=== PATIENT | female | born 1945 | race Caucasian/White ===

== ENCOUNTER 2021-09-16 14:46 | Emergency (ER) | payer OTHER, SELFPAY ==
[2021-09-16 14:55] VITALS: BP 144/81; O2SAT 97
[2021-09-16 15:02] VITALS: BP 144/81; PULSE 55; RESP 18; TEMP 36.5; O2SAT 96; BMI 19.5
--- NOTE | 2021-09-16 15:07 | ED.ABDPAIN ---
HPI - Abdominal Pain General Time Seen by Provider: 15:07 Date Seen: 09/16/21 Chief Complaint: Abdominal Pain Stated Complaint: Abdominal pain Time Seen by Provider: 09/16/21 15:01 Source: patient, EMS, RN notes reviewed and old records reviewed Mode of arrival: EMS ([facility] service) History of Present Illness HPI narrative: Juanpablo is a very pleasant 75-year-old female coming in with complaint of abdominal pain. This started around 2-3 a.m. yesterday morning. It awoke her from sleep. She has not had any emesis but has not taken much in at all. She has a history of gastroparesis, does not remember exactly when it was diagnosed but probably several years ago. She will have intermittent symptoms and sometimes will be completely normal. With her gastroparesis she has stool incontinence and is experiencing that as well now. Denies any diarrhea technically. No urinary symptoms, no fevers. She historically has not tolerated IV Reglan. She does think she could use some fluids and IV Zofran. She did get brought in by [facility], they did establish an IV and have given her 100 mcg fentanyl. She is on clopidogrel for heart attack in February of 2021 for which she went to [facility]. She was actually in the ER being checked up for a sinusitis when she developed chest pain and was found to be having a heart attack. She denies any chest symptomatology at this time. She has had a prior appendectomy, cholecystectomy and hysterectomy but otherwise denies any other abdominal surgeries. MD elicited complaint: abdominal pain Pertinent past history: other (Gastroparesis) Onset (ago): day(s) (Started yesterday morning) Pain Consistency: constant Location: diffuse Severity: moderate Exacerbating factors: nothing Relieving factors: medication (Fentanyl did help) Related Data Home Medications Medication Instructions Recorded Confirmed clopidogrel 75 mg tablet mg 09/16/21 folic acid 1 mg tablet 09/16/21 isosorbide mononitrate 30 mg mg PO 09/16/21 tablet,extended release 24 hr lisinopril 10 mg tablet mg 09/16/21 lisinopril 2.5 mg tablet mg 09/16/21 metoprolol tartrate 100 mg tablet mg 09/16/21 omeprazole 20 mg capsule,delayed mg 09/16/21 release rosuvastatin 20 mg tablet mg 09/16/21 trazodone 150 mg tablet mg 09/16/21 Allergies Allergy/AdvReac Type Severity Reaction Status Date / Time codeine Allergy Verified 09/16/21 15:01 pentazocine [From Talwin] Allergy Verified 09/16/21 15:01 Sulfa (Sulfonamide Allergy Verified 09/16/21 15:01 Antibiotics) Review of Systems Status of ROS Reports: 10 or more systems reviewed and unremarkable except as noted in History and below PFS PFS Medical History (Updated 09/16/21 @ 17:30 by Rachelle Nguyễn MD) Gastroparesis GERD (gastroesophageal reflux disease) Surgical History (Updated 09/16/21 @ 17:30 by Rachelle Nguyễn MD) Status post appendectomy Status post cholecystectomy Status post hysterectomy Social History Smoking Status: Current every day smoker Do you use any of these nicotine containing products: E-Cigarettes Second hand tobacco smoke exposure: No How often do you have a drink containing alcohol: monthly or less How often do you have six or more drinks on one occasion: Never AUDIT-C Alcohol total score: 1 Non-prescribed substance use: denies use Exam Const: Vital Signs, click to edit/add: Vital Signs - 24 hr 09/16/21 14:55 09/16/21 15:02 09/16/21 16:15 Temperature 97.7 F Pulse Rate [Right Pulse Oximeter] 55 L Respiratory Rate 18 Blood Pressure [Ri ght Upper Arm] 144/81 H 144/81 H 169/85 H Pulse Oximetry 97 96 97 09/16/21 16:20 09/16/21 16:30 09/16/21 17:00 Temperature Pulse Rate [Right Pulse Oximeter] 53 L 53 L 55 L Respiratory Rate Blood Pressure [Ri ght Upper Arm] 187/80 H 184/88 H 155/98 H Pulse Oximetry 96 96 96 Documenting provider has reviewed patient's vital signs: yes Common normals: no apparent distress, average body habitus, oriented x3, no limitations, healthy appearing, alert and well nourished HENMT: Common normals: normocephalic, head/scalp atraumatic, hearing grossly normal bilaterally, external ears normal, external nose normal, moist oral mucous membranes, oropharynx normal and dentition normal Head and scalp: normocephalic and atraumatic Nose: external nose normal External ear: external ears normal Eye: Common normals: PERRL, EOMs intact bilaterally, conjunctivae normal and no scleral icterus Conjunctiva: conjunctiva(e) normal Pupil: PERRL Neck & C-Spine: Common normals: full ROM, no lymphadenopathy, supple, no meningeal signs, no JVD and thyroid normal Thyroid: thyroid normal Resp: Common normals: normal respiratory effort, no retractions, no use of accessory muscles and clear to auscultation bilaterally Auscultation: clear to auscultation bilaterally Cardio: Common normals: no JVD, regular rate, regular rhythm, S1 normal heart sound, S2 normal heart sound, no gallops, no clicks and no murmurs Rate: regular rate Rhythm: regular rhythm Heart sounds: S1 normal and S2 normal GI: Common normals: Normal to inspection, nondistended, normoactive bowel sounds present, soft to palpation, no hepatosplenomegaly and no masses Palpation: soft, tender (Mildly diffuse without rebound or guarding) and no hepatosplenomegaly Extremity: Common normals: normal to inspection, full ROM and no pedal edema Neuro: Common normals: oriented x3 Sensorium/orientation: alert Meningeal signs: no meningeal signs Skin: Common normals: no rashes or lesions noted (Skin is truong) General skin exam: no rashes or lesions noted (Skin is truong) Course Course Hospital Course: Reviewed with Adela that we will initiate normal saline 500 mL, give her 4 mg IV Zofran. We will initiate imaging with a flat and upright, consider CT abdomen pelvis if needed. Will be getting CBC, comprehensive metabolic panel, lipase as well as a lactate. Her gastroparesis is definitely in the differential, vascular etiologies certainly could be possible including but not limited to aneurysms, ischemic bowel. She has had prior abdominal surgeries and obstructive pathology is in the consideration. We will await labs and imaging to help us decide on further management. We will also consider atypical presentation of cardiac disease. Reevaluation(s) Reevaluation #1: Patient did get 1 further subsequent dose of fentanyl 50 mcg IV at 4:15 p.m.. After that she really felt quite well. Her flat and upright were not showing any obstructive pathology and her labs including troponin were showing no evidence of any abnormality. She then did give her trial of clear liquids and tolerated it with no return of any abdominal pain or symptoms of nausea vomiting. She is requesting to go home stating that she knows there is not much that we can do for her in this situation. At this time her symptoms have seemingly resolved and I do think it is reasonable for her to discharge to home. I have asked her to stay on a clear liquid diet overnight and slowly advance diet if tolerating clears. Time: 17:24 Vital Signs Vital signs: Initial Vital Signs Blood Pressure 144/81 H 09/16/21 14:55 Blood Pressure Mean 102 09/16/21 14:55 Blood Pressure Position Supine 09/16/21 14:55 Pulse Oximetry 97 09/16/21 14:55 Vital Signs Blood Pressure 144/81 H 09/16/21 14:55 Pulse Oximetry 97 09/16/21 14:55 Temperature 97.7 F 09/16/21 15:02 Pulse Rate 55 L 09/16/21 17:00 Respiratory Rate 18 09/16/21 15:02 Blood Pressure 155/98 H 09/16/21 17:00 Pulse Oximetry 96 09/16/21 17:00 MDM - Abdominal Pain MDM Narrative Medical decision making narrative: See hospital course Lab Data Attestation: I reviewed the patient's lab results. Labs: Lab Results 09/16/21 09/16/21 09/16/21 Range/Units 15:29 15:29 15:29 WBC 10.94 (4.50-11.00) K/uL RBC 4.48 (4.00-5.20) m/uL Hgb 13.2 (12.0-16.0) gm/dL Hct 40.0 (33.0-51.0) % MCV 89 (80-100) fL MCH 30 (26-34) pg MCHC 33 (32-36) gm/dL RDW Coeff of Kenny 13.7 (11.5-15.5) % Plt Count 265 (140-440) K/uL Neut % (Auto) 70.1 (42.0-72.0) % Lymph % (Auto) 17.8 L (20-44) % Tarrant % (Auto) 9.8 (0.0-11.0) % Eos % (Auto) 1.2 (0.0-7.0) % Baso % (Auto) 0.6 (0.0-3.0) % Neut # (Auto) 7.66 H (1.7-7.0) K/uL Lymph # (Auto) 1.90 (0.90-2.90) K/uL Tarrant # (Auto) 1.10 H (0.00-0.90) K/UL Eos # (Auto) 0.13 (0.00-0.50) K/uL Baso # (Auto) 0.07 (0.00-0.30) K/uL Abs Immat Gran (auto) 0.06 (0.00-0.30) K/uL Sodium 140 (135-149) mmol/L Potassium 3.4 L (3.6-5.1) mmol/L Chloride 106 (96-114) mmol/L Carbon Dioxide 25 (20-32) mmol/L BUN 8 (7-30) mg/dL Creatinine 0.8 (0.5-1.5) mg/dL Estimated Creat Clear 34.81 Glucose 90 (60-115) mg/dL Lactate 1.5 (0.5-1.9) mmol/L Calcium 9.6 (8.4-10.6) mg/dL Total Bilirubin 0.5 (0.1-1.5) mg/dL AST 25 (12-35) U/L ALT 17 (4-35) U/L Alkaline Phosphatase 72 (40-150) U/L Troponin I < 0.01 L (0.01-0.04) ng/mL Total Protein 6.9 (6.0-8.3) g/dL Albumin 4.4 (3.3-5.0) g/dL Lipase 51 (23-300) U/L 09/16/21 09/16/21 Range/Units 15:29 15:29 WBC (4.50-11.00) K/uL RBC (4.00-5.20) m/uL Hgb (12.0-16.0) gm/dL Hct (33.0-51.0) % MCV (80-100) fL MCH (26-34) pg MCHC (32-36) gm/dL RDW Coeff of Kenny (11.5-15.5) % Plt Count (140-440) K/uL Neut % (Auto) (42.0-72.0) % Lymph % (Auto) (20-44) % Tarrant % (Auto) (0.0-11.0) % Eos % (Auto) (0.0-7.0) % Baso % (Auto) (0.0-3.0) % Neut # (Auto) (1.7-7.0) K/uL Lymph # (Auto) (0.90-2.90) K/uL Tarrant # (Auto) (0.00-0.90) K/UL Eos # (Auto) (0.00-0.50) K/uL Baso # (Auto) (0.00-0.30) K/uL Abs Immat Gran (auto) (0.00-0.30) K/uL Sodium (135-149) mmol/L Potassium (3.6-5.1) mmol/L Chloride (96-114) mmol/L Carbon Dioxide (20-32) mmol/L BUN (7-30) mg/dL Creatinine (0.5-1.5) mg/dL Estimated Creat Clear Glucose (60-115) mg/dL Lactate (0.5-1.9) mmol/L Calcium (8.4-10.6) mg/dL Total Bilirubin (0.1-1.5) mg/dL AST (12-35) U/L ALT (4-35) U/L Alkaline Phosphatase (40-150) U/L Troponin I Cancelled (0.01-0.04) ng/mL Total Protein (6.0-8.3) g/dL Albumin (3.3-5.0) g/dL Lipase Cancelled (23-300) U/L Imaging Data Abdominal x-ray: Attestation: I have reviewed the pertinent imaging results. Radiologist's impression: Patient: ADELA BOYD Facility:?[facility] Patient ID:?[id number] Site Patient ID:?[id number]. Site :?[id number] Study:?XRay Abdomen 2 VIEW-09/16/2021 3:39:50 PM Ordering Physician:Kyle Bush Final Report: Indication: Abdominal pain. History of gastroparesis. Technique: Upright and supine views the abdomen were acquired Comparison: None Findings: Degenerative changes of the spine. Calcifications are probably partially vascular and probably due to fat necrosis in the buttocks. Postoperative change in the right upper quadrant. Nonobstructive bowel gas pattern without evidence of ileus, obstruction or perforation. No undue dilation of the stomach Impression: No evidence of ileus, obstruction or perforation. No undue dilation of the stomach. Dictated by Ck Stinson MD @ 09/16/2021 4:33:43 PM (Electronic Signature) ECG Data Attestation: I personally reviewed and interpreted this ECG as follows: (Sinus bradycardia, 53 beats per minute, no acute abnormality noted.) ECG interpretation date: 09/16/21 ECG interpretation time: 16:11 Critical Care Time Critical Care Time Critical Care Time: No Discharge Plan Discharge Clinical Impression: Abdominal pain Patient Disposition: Home, Self-Care Condition: Improved Instructions: Abdominal Pain (ED) Additional Instructions: Stick with sips of clear liquids overnight. If you are tolerating this and have no abdominal pain or nausea, I can try to slowly advance her diet as tolerated back to regular. Seek re-evaluation with severe abdominal pain, associated fever or vomiting. She do have further concerns or other issues that are concerning you related to these issues, also recommend re-evaluation. Activity Level: No Restrictions Discharge Diet: Clear Liquid Diet Detail: See above Prescriptions: No Action metoprolol tartrate 100 mg tablet 0RF isosorbide mononitrate 30 mg tablet extended release 24 hr PO 0RF clopidogrel 75 mg tablet 0RF trazodone 150 mg tablet 0RF lisinopril 10 mg tablet 0RF omeprazole 20 mg capsule,delayed release(DR/EC) 0RF folic acid 1 mg tablet 0RF lisinopril 2.5 mg tablet 0RF rosuvastatin 20 mg tablet 0RF Follow Up/Referrals: Tong Truong MD [Primary Care Provider] - Stand Alone Forms: [employer] Info Instructions
--- NOTE | 2021-09-16 15:17 | CRLHL7_ITS ---
For Patients: As a result of the Century Cures Act, medical imaging exams and procedure reports are released immediately into your electronic medical record. You may view this report before your referring provider. If you have questions, please contact your health care provider. Indication: Abdominal pain. History of gastroparesis. Technique: Upright and supine views the abdomen were acquired Comparison: None Findings: Degenerative changes of the spine. Calcifications are probably partially vascular and probably due to fat necrosis in the buttocks. Postoperative change in the right upper quadrant. Nonobstructive bowel gas pattern without evidence of ileus, obstruction or perforation. No undue dilation of the stomach Impression: No evidence of ileus, obstruction or perforation. No undue dilation of the stomach. Dictated by Ck Stinson MD @ 09/16/2021 4:33:43 PM (Electronically Signed)
[2021-09-16 15:35] LABS: Basophils Absolute Auto 0.07 K/uL (0.00-0.30); Basophils Percent Auto 0.6 % (0.0-3.0); Eosinophils Absolute Auto 0.13 K/uL (0.00-0.50); Eosinophils Percent Auto 1.2 % (0.0-7.0); Hemoglobin* 13.2 gm/dL (12.0-16.0); Immature Granulocytes Abs Auto 0.06 K/uL (0.00-0.30); Lymphocytes Percent Auto 17.8 % (20-44); Mean Corpuscular HGB Conc 33 gm/dL (32-36); Mean Corpuscular Hemoglobin 30 pg (26-34); Mean Corpuscular Volume 89 fL (80-100); Monocytes Percent Auto 9.8 % (0.0-11.0); Neutrophils Absolute Auto 7.66 K/uL (1.7-7.0); Neutrophils Percent Auto 70.1 % (42.0-72.0); Platelet Count* 265 K/uL (140-440); RDW Coefficient of Variation % 13.7 % (11.5-15.5); Red Blood Count 4.48 m/uL (4.00-5.20); White Blood Count* 10.94 K/uL (4.50-11.00)
[2021-09-16 15:41] LABS: Lactate* 1.5 mmol/L (0.5-1.9)
[2021-09-16 15:46] LABS: Slide Review Reflex No
[2021-09-16] MEDS: ONDANSETRON 2 MG/ML inj 4 MG IVP (15:49)
[2021-09-16] MEDS: 0.9 % SODIUM CHLORIDE 500 ML 500 ML IV (15:49)
[2021-09-16 16:01] LABS: Albumin* 4.4 g/dL (3.3-5.0)
[2021-09-16 16:02] LABS: Chloride* 106 mmol/L (96-114); Potassium* 3.4 mmol/L (3.6-5.1); Sodium* 140 mmol/L (135-149)
[2021-09-16 16:04] LABS: Aspartate Amino Transferase* 25 U/L (12-35); Bilirubin Total* 0.5 mg/dL (0.1-1.5); Carbon Dioxide* 25 mmol/L (20-32); Creatinine* 0.8 mg/dL (0.5-1.5); Est. Creatinine Clearance* 34.81; Estimated Glomerular Filt Rate 76.79; Total Protein* 6.9 g/dL (6.0-8.3)
[2021-09-16 16:05] LABS: Alanine Aminotransferase* 17 U/L (4-35); Alkaline Phosphatase* 72 U/L (40-150); Blood Urea Nitrogen* 8 mg/dL (7-30); Calcium* 9.6 mg/dL (8.4-10.6); Glucose* 90 mg/dL (60-115); Lipase* 51 U/L (23-300)
[2021-09-16 16:15] VITALS: BP 169/85; O2SAT 97
[2021-09-16 16:20] VITALS: BP 187/80; PULSE 53; O2SAT 96
[2021-09-16 16:20] LABS: Troponin I* < 0.01 ng/mL (0.01-0.04)
[2021-09-16] MEDS: fentaNYL 100 MCG/2 ML inj 50 MCG IVP (16:23)
[2021-09-16 16:30] VITALS: BP 184/88; PULSE 53; O2SAT 96
[2021-09-16 17:00] VITALS: BP 155/98; PULSE 55; O2SAT 96
== END 2021-09-16 17:36 | disposition home or self-care (01) ==
PROVIDERS: Emergency Provider Family Medicine; PCP Family Medicine
DX: R10.9 Unspecified abdominal pain (principal)
CPT/HCPCS: 36415; 74019; 80053; 83605; 83690; 84484; 85025; 93005; 96374; 96375; 99284; 99285; J2405; J3010; J7120

== ENCOUNTER 2022-07-06 10:50 | Outpatient (CLI) | payer MEDICARE, SELFPAY | END 2022-07-06 10:51 | disposition home or self-care (01) | LOC: NFLDREF 07-07 11:09 | PROVIDERS: PCP Family Medicine; Referring Provider Family Medicine; Visit Provider Family Medicine | DX: E78.5 Hyperlipidemia, unspecified (principal); I25.10 Atherosclerotic heart disease of native coronary artery without angina pectoris; I10 Essential (primary) hypertension; K52.9 Noninfective gastroenteritis and colitis, unspecified; Z95.5 Presence of coronary angioplasty implant and graft; E87.6 Hypokalemia | CPT/HCPCS: 80048; 80061 ==

== ENCOUNTER 2023-11-12 13:15 | Emergency (ER) | payer MEDICARE, MEDICAID, SELFPAY ==
[2023-11-12] VITALS (12 sets, daily range): BP systolic 110–140; BP diastolic 66–86; PULSE 61–68; RESP 18; TEMP 37.1; O2SAT 96–98; BMI 18.7
--- NOTE | 2023-11-12 13:32 | CRLHL7_ITS ---
For Patients: As a result of the Century Cures Act, medical imaging exams and procedure reports are released immediately into your electronic medical record. You may view this report before your referring provider. If you have questions, please contact your health care provider. INDICATION: Fall, vertigo TECHNIQUE: CT head without contrast. COMPARISON: Head CT 12/16/2019 FINDINGS: CSF spaces: Within normal limits for age. Brain parenchyma: The gaytan-white differentiation is normal. No sign of mass, hemorrhage, or midline shift. Skull base and calvarium: The visualized paranasal sinuses and mastoid air cells demonstrate no acute or significant findings. The visualized orbits are grossly unremarkable. No skull fractures. Atherosclerosis. IMPRESSION: Unremarkable noncontrast head CT. Please note that all CT scans at this facility use dose modulation, iterative reconstruction, and/or weight-based dosing when appropriate to reduce radiation dose to as low as reasonably achievable. Dictated by Beau Montoya MD @ 11/12/2023 2:30:04 PM (Electronically Signed)
--- NOTE | 2023-11-12 13:34 | CRLHL7_ITS ---
For Patients: As a result of the Century Cures Act, medical imaging exams and procedure reports are released immediately into your electronic medical record. You may view this report before your referring provider. If you have questions, please contact your health care provider. DATE: 11/12/2023 CLINICAL HISTORY: Patient with fall and vertigo. TECHNIQUE: Standard helical CT image acquisition of the neck up to the skull base after bolus intravenous contrast enhancement. 2D and 3D MIP images for post-processing were performed and interpreted on an independent workstation and 3D images were permanently archived. COMPARISON: CT same day. FINDINGS: The origins of the great vessels from the aortic arch are patent. The origin of the right vertebral artery demonstrates mild narrowing. The origin of the left vertebral artery demonstrates mild narrowing. The common carotid arteries are patent. There is no stenosis at the origin of the right internal carotid artery. There is no stenosis at the origin of the left internal carotid artery. The rest of the cervical segments of the internal carotid arteries are patent up to the skull base. The vertebral arteries are codominant. The cervical segments of the vertebral arteries are patent up to the skull base. The visualized lung apices are unremarkable. The thyroid gland is unremarkable. The soft tissues of the neck are unremarkable. There are degenerative changes in the cervical spine. IMPRESSION: Mild narrowing at the origins of the vertebral arteries bilaterally. Patent rest of the cervical vasculature. Please note that all CT scans at this facility use dose modulation, iterative reconstruction, and/or weight-based dosing when appropriate to reduce radiation dose to as low as reasonably achievable. Dictated by Shira Mojica MD @ 11/12/2023 3:00:38 PM (Electronically Signed)
--- NOTE | 2023-11-12 13:34 | CRLHL7_ITS ---
For Patients: As a result of the Century Cures Act, medical imaging exams and procedure reports are released immediately into your electronic medical record. You may view this report before your referring provider. If you have questions, please contact your health care provider. DATE: 11/12/2023 CLINICAL HISTORY: Patient with vertigo and falls. TECHNIQUE: Standard helical CT image acquisition through the intracranial circulation following intravenous administration of contrast material with bolus tracking. 2D and 3D MIP images for post-processing were performed and interpreted on an independent workstation and 3D images were permanently archived. COMPARISON: CT same day. FINDINGS: There is no cerebral aneurysm or large vessel occlusion. The right internal carotid artery is normal. The right middle cerebral artery and its branches are normal. The right anterior cerebral artery and its branches are normal. The left internal carotid artery is normal. The left middle cerebral artery and its branches are normal. The left anterior cerebral artery and its branches are normal. The anterior communicating artery is well visualized and appears normal. The right vertebral artery and PICA are normal. The left vertebral artery and PICA are normal. The vertebral arteries are codominant. The basilar artery is patent and appears normal. The right posterior cerebral artery is normal. The left posterior cerebral artery is normal. The visualized venous structures are patent. IMPRESSION: Patent proximal intracranial vasculature without intracranial aneurysms. Please note that all CT scans at this facility use dose modulation, iterative reconstruction, and/or weight-based dosing when appropriate to reduce radiation dose to as low as reasonably achievable. Dictated by Shira Mojica MD @ 11/12/2023 3:02:33 PM (Electronically Signed)
--- NOTE | 2023-11-12 13:36 | ED_ITS ---
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 She has no known history of stroke. Her primary care provider is Dr. Zabrina wilson here at the [facility]. Per records her most recent checkup was in May 2023. According to that record she did have an UT around [place], but unclear about who her elevator repairer helper was. She has a history of AFib but does not know for sure if she is on meds or not. She thinks she is on metoprolol and Eliquis. Patient reports that she has an apartment in [place]. She tends to sleep late so she got up late this morning and had not had breakfast for lunch she had. She was walking in her apartment today when she says she just abruptly got dizzy. She felt like things were moving around her or that her body was not in the right place. She fell down. She did not really injure herself when she fell. She says she did not hit her head. Around that same time she also developed a pressure-like substernal chest pain. This does not radiate up to her neck, through to her back, or down her arm. She is mildly nauseous. No trouble breathing. She does not feel any palpitations. No abdominal pain or back pain. Her vision has been normal. No double vision, blurry vision, or vision loss. No numbness or weakness in her arms or legs. The her son, Anjel, provides additional history by phone that she is a heavy drinker and if she is dizzy she may actually be intoxicated. Patient, when asked directly says that she ?split a bottle of wine with a friend? yesterday but denies any alcohol consumption today. Related Data Home Medications ?Medication ?Instructions ?Recorded ?Confirmed aspirin 81 mg tablet,delayed 81 mg PO DAILY 07/06/22 05/24/23 release calcium w/D PO BID 07/06/22 05/24/23 multivitamin 1 tab PO QDAY 07/06/22 05/24/23 omeprazole 20 mg capsule,delayed 20 mg PO QDAY PRN 05/24/23 05/24/23 release Previous Rx's ?Medication ?Instructions ?Recorded naratriptan 2.5 mg tablet 2.5 mg PO DAILY PRN migraine 02/05/23 headache #9 tabs apixaban 2.5 mg tablet (Eliquis) 2.5 mg PO BID #180 tabs 05/24/23 metoprolol tartrate 100 mg tablet 100 mg PO BID #180 tabs 09/15/23 isosorbide dinitrate 30 mg tablet 30 mg PO TID #270 tabs 09/17/23 lisinopril 2.5 mg tablet 2.5 mg PO QDAY #90 tabs 09/17/23 rosuvastatin 20 mg tablet 20 mg PO QDAY #90 tabs 09/17/23 trazodone 150 mg tablet 150 mg PO QHS #90 tabs 09/17/23 clopidogrel 75 mg tablet 75 mg PO QDAY #90 tabs 09/20/23 folic acid 1 mg tablet 1 mg PO QDAY #90 tabs 09/20/23 magnesium oxide 400 mg (241.3 mg 400 mg PO QDAY #90 tabs 09/20/23 magnesium) tablet nitroglycerin 0.4 mg sublingual 0.4 mg sublingual Q5M PRN chest 09/20/23 tablet pain #25 tabs Allergies Allergy/AdvReac Type Severity Reaction Status Date / Time aspirin Allergy Intermediate aggitation Verified 05/24/23 13:41 codeine Allergy Intermediate nausea and Verified 05/24/23 13:41 vomiting naloxone Allergy Intermediate aggitation Verified 05/24/23 13:41 pentazocine [From [place]win] Allergy Intermediate aggitation Verified 05/24/23 13:41 Sulfa (Sulfonamide Allergy Verified 05/24/23 13:41 Antibiotics) [facility] Medical History (Updated 11/12/23 @ 15:34 by Rod Foss MD) History of stroke ?Z86.73 - Personal history of transient ischemic attack (TIA), and cerebral infarction without residual deficits (ICD-10) Proctocolitis (06/2022) ?K52.9 - Noninfective gastroenteritis and colitis, unspecified (ICD-10) History of ganglion cyst ?Z87.39 - Personal history of other diseases of the musculoskeletal system and connective tissue (ICD-10) History of alcohol abuse ?F10.11 - Alcohol abuse, in remission (ICD-10) GERD (gastroesophageal reflux disease) ?K21.9 - Gastro-esophageal reflux disease without esophagitis (ICD-10) Gastroparesis ?K31.84 - Gastroparesis (ICD-10) Surgical History (Updated 12/28/22 @ 13:53 by Savanah Dias) Presence of stent in coronary artery ?Z95.5 - Presence of coronary angioplasty implant and graft (ICD-10) History of tonsillectomy ?Z90.89 - Acquired absence of other organs (ICD-10) History of breast biopsy ?Z98.890 - Other specified postprocedural states (ICD-10) Status post hysterectomy ?Z90.710 - Acquired absence of both cervix and uterus (ICD-10) Status post cholecystectomy ?Z90.49 - Acquired absence of other specified parts of digestive tract (ICD- 10) Status post appendectomy ?Z90.49 - Acquired absence of other specified parts of digestive tract (ICD- 10) Social History (Updated 05/24/23 @ 18:06 by Denisa Blanco~[facility], [facility]) Narrative: financial difficulty- ex misleading about debt What is your current living situation?: I presently have a place to live Problems where you live: pests, such as bugs, ants, or mice In the past 12 months, utilities in danger of being shut off: no In past 12 months, lack of transportation kept you from medical appts, meetings, work, or getting things needed for daily living: yes In the past 12 mos, have been you worried that your food would run out before you had money to buy more?: sometimes true In the past 12 mos, the food you bought just didn't last and you didn't have money to buy more?: never true Smoking Status: Former smoker Do you use any of these nicotine containing products: E-Cigarettes Second hand tobacco smoke exposure: No How often do you have a drink containing alcohol: monthly or less How often do you have six or more drinks on one occasion: Never AUDIT-C Alcohol total score: 1 Non-prescribed substance use: denies use How often does anyone, including family, friends and others, physically hurt you : never How often does anyone, including family, friends and others, insult or talk down to you: never How often does anyone, including family, friends and others, threaten you with harm: never How often does anyone, including family, friends and others, scream or curse at you: never Little interest or pleasure in doing things: not at all Feeling down, depressed, or hopeless: several days Exam Narrative: Exam Narrative: Constitutional: Appears well-developed and well-nourished. Alert. Conversant. Non toxic. HENT: Head: Atraumatic. No depressed skull fracture, Raccoon Eyes, Mchugh's sign, or hemotympanum. Face normal. TMs normal TMs normal Nose: Nose normal. Mouth/Throat: Oral mucosa is clear and moist. no trismus. Pharynx normal. Tonsils symmetric. No tonsillar enlargement, erythema, or exudate. Eyes: Conjunctivae normal. EOM normal. Pupils equal, round, and reactive to light. No scleral icterus. Neck: Normal range of motion. Neck supple. No tracheal deviation present. Cardiovascular: Normal rate, regular rhythm. No gallop. No friction rub. No murmur heard. Symmetric radial artery pulses Pulmonary/Chest: Effort normal. No stridor. No respiratory distress. No wheezes. No rales. No rhonchi . No tenderness. Abdominal: Soft. Bowel sounds normal. No distension. No mass. No tenderness. No rebound. No guarding. Musculoskeletal: RUE: Normal range of motion. No tenderness. No deformity LUE: Normal range of motion. No tenderness. No deformity RLE: Normal range of motion. No edema. No tenderness. No deformity LLE: Normal range of motion. No edema. No tenderness. No deformity Lymph: No cervical adenopathy. Neurological: Mental status normal. Attention normal. Alert and oriented x3. GCS 15. Memory normal. Speech fluent. Cognition normal. Cranial Nerves intact II-XII except I did not formally test gag or visual acuity. EOMI. Palate elevates symmetrically and tongue protrudes in the midline. Strength: 5/5 trapezius on the right and left 5/5 deltoid on the right and left 5/5 biceps on the right and left 5/5 triceps on the right and left 5/5 returns processor on the right and left 5/5 thumb opposition on the right and le ft 5/5 finger abduction on the right and le ft 5/5 hip flexors (L3) on the right and le ft 5/5 quadriceps (L4) on the right and lef t 5/5 tibialis anterior on the right and l eft 5/5 EHL (L5) on the right and left 5/5 gastrocnemius (S1) on the right and left 5/5 hamstring on the right and left Sensation intact to light touch in both upper extremities (C4-T1) Sensation intact to light touch in Both lower extremities (L4-S1). Finger to nose and coordination normal. Gait not assessed during initial evaluation with need to get her for CT Skin: Skin is warm and dry. No rash noted. No pallor. Normal capillary refill. Psychiatric: Normal mood. Normal affect. Very pleasant. Does endorse that she had a bottle wine yesterday that she split with a friend. She denies any alcohol to today. Her son Anjel reports to the nurses by phone that she is a ?heavy alcoholic. Const: Vital Signs, click to edit/add: Vital Signs - 24 hr 11/12/23 13:24 11/12/23 13:27 11/12/23 13:30 Temperature 98.7 F Pulse Rate 66 68 Pulse Rate [Pulse Oximeter] 66 Respiratory Rate 18 Blood Pressure Blood Pressure [Ri ght Upper Arm] 110/66 Pulse Oximetry 96 97 96 Oxygen Delivery Me thod Room Air 11/12/23 13:45 11/12/23 14:00 11/12/23 14:30 Temperature Pulse Rate 65 61 Pulse Rate [Pulse Oximeter] Respiratory Rate Blood Pressure 131/81 Blood Pressure [Ri ght Upper Arm] Pulse Oximetry 97 98 Oxygen Delivery Me thod 11/12/23 14:32 11/12/23 14:33 11/12/23 14:45 Temperature Pulse Rate 65 66 63 Pulse Rate [Pulse Oximeter] Respiratory Rate Blood Pressure 124/86 Blood Pressure [Ri ght Upper Arm] Pulse Oximetry 96 97 98 Oxygen Delivery Me thod 11/12/23 15:00 11/12/23 15:02 11/12/23 15:02 Temperature Pulse Rate 64 61 61 Pulse Rate [Pulse Oximeter] Respiratory Rate Blood Pressure 140/82 H 140/82 H Blood Pressure [Ri ght Upper Arm] Pulse Oximetry 98 98 98 Oxygen Delivery Me thod 11/12/23 15:15 Temperature Pulse Rate 61 Pulse Rate [Pulse Oximeter] Respiratory Rate Blood Pressure Blood Pressure [Ri ght Upper Arm] Pulse Oximetry 98 Oxygen Delivery Me thod Course Course ED Course: Recheck-back from CT. Still feeling a little bit nauseous. Mildly dizzy. Able to drink water. Additional Zofran ordered. Reevaluation(s) Reevaluation #1: Recheck-labs coming back. Initial troponin normal. Alcohol level is elevated at 0.11. I discussed this with the patient. We discussed that an alcohol level of 0.11 today this afternoon is not consistent with consuming half full bottle of wine yesterday. I asked her if there was more alcohol intake that she had initially been on comfortable confiding. She did change her story and said that she had a whole bottle of wine and her friend had a bottle of wine yesterday. She says otherwise she was not drinking overnight or this morning. She also says that she does not normally drink and she has not had any alcohol in 6 months. The only reason why she had 1 yesterday was because her friend was visiting. Ultimately, she denies any trouble with alcohol consumption. She is not interested in alcohol treatment. She is not displaying any signs of alcohol withdrawal. Vital Signs Vital signs: Initial Vital Signs Temperature 98.7 F 11/12/23 13:24 Temperature Source Temporal Artery Scan 11/12/23 13:24 Pulse Rate 66 11/12/23 13:24 Respiratory Rate 18 11/12/23 13:24 Blood Pressure 110/66 11/12/23 13:24 Blood Pressure Mean 80 11/12/23 13:24 Pulse Oximetry 96 11/12/23 13:24 Oxygen Delivery Method Room Air 11/12/23 13:24 Vital Signs Temperature 98.7 F 11/12/23 13:24 Pulse Rate 66 11/12/23 13:24 Respiratory Rate 18 11/12/23 13:24 Blood Pressure 110/66 11/12/23 13:24 Pulse Oximetry 96 11/12/23 13:24 Oxygen Delivery Method Room Air 11/12/23 13:24 Temperature 98.7 F 11/12/23 13:24 Pulse Rate 61 11/12/23 15:15 Respiratory Rate 18 11/12/23 13:24 Blood Pressure 140/82 H 11/12/23 15:02 Pulse Oximetry 98 11/12/23 15:15 Oxygen Delivery Method Room Air 11/12/23 13:24 Medications Administered Medications: Discontinued Medications Generic Name Dose Route Start Last Admin Trade Name Stefan PRN Reason Stop Dose Admin Sodium Chloride 1,000 mls @ 1,000 mls/hr 11/12/23 15:45 11/12/23 16:00 0.9 % Sodium Chloride 1000 Ml IV 11/12/23 16:44 Infused .Q1H SANIYA Infusion Meclizine HCl 25 mg 11/12/23 13:35 11/12/23 13:50 Meclizine Hcl 25 Mg Tablet PO 11/12/23 13:36 25 mg ONCE ONE Administration Ondansetron HCl 4 mg 11/12/23 13:35 11/12/23 13:45 Ondansetron 2 Mg/Ml Inj IVP 11/12/23 13:36 4 mg ONCE ONE Administration Ondansetron HCl 4 mg 11/12/23 14:35 11/12/23 14:40 Ondansetron 2 Mg/Ml Inj IVP 11/12/23 14:36 4 mg ONCE ONE Administration Medical Decision Making MDM Narrative Medical decision making narrative: 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 She is complaining of nauseous, mild dizziness and vertigo, also substernal chest discomfort. In terms of her dizziness and vertigo initially with presumed she probably fell as a result of vertigo. Initial concern was to determine whether not vertigo is peripheral or possibly central. Other than vertigo no other detectable ne urologic deficits. No diplopia, dysarthria, dysphagia, definite nystagmus. We did order neuro imaging with CT head CT and CTA - both normal. After the patient arrived, son provided additional history by phone that she is an alcoholic. This prompted a struck alcohol level and it is positive at 0.11. This likely explains her nausea and unsteadiness. Without any other focal neurologic deficits, and a it probable explanation for her dizziness would hold off on brain MRI for now. She is not a candidate for thrombolytic because she is also on Eliquis for stroke prophylaxis with AFib. EKG shows sinus rhythm today. No arrhythmia or atrial fibrillation. She is also complaining of some substernal chest discomfort which began around noon today, approximately. Aspirin contraindicated by Allergy. She is already anticoagulated on Eliquis. EKG shows no ischemia. Troponin upon arrival is negative. 2 hour delta troponin[] She is not having any pleuritic chest pain, shortness of breath, hypoxia, tachycardia. She has no signs or symptoms of DVT. Will hold off on PE workup for now given very low likelihood. The although she does have alcohol intoxication and likely a pattern of alcohol abuse, other labs are reassuring. Sodium and potassium normal. Anion gap normal. No evidence for AKA. Kidney function normal. Venous lactic normal. Liver function tests are normal. No abdominal pain Urinalysis is normal In terms of her alcohol consumption her story is changing here in the ER, initially half a bottle 1, next she reported a whole bottle of wine. She also says yesterday was the 1st day she consumed any alcohol in 6 months. Her son reported a different pattern of alcohol consumption. Ultimately she is polite and cooperative. No signs of alcohol withdrawal. She is refusing any offered treatment or referral for outpatient care. Disposition. After completing her chest pain rule out patient is adamantly requesting discharge. She does not have anyone from [place] to come get her and drive her home. [place] are not available to drive that far. We contacted her son, Anjel. I left a message with her son any call back and talk to nurses. He lives in [place] but can come get her, leaving home after 8:00 p.m. tonlaurie. Her son Juan Luis will not come get her today. Lab Data Labs: Lab Results 11/12/23 11/12/23 11/12/23 Range/Units 13:32 13:33 13:50 WBC 9.01 (4.50-11.00) K/uL RBC 4.60 (4.00-5.20) m/uL Hgb 14.3 (12.0-16.0) gm/dL Hct 43.6 (33.0-51.0) % MCV 95 (80-100) fL MCH 31 (26-34) pg MCHC 33 (32-36) gm/dL RDW Coeff of Kenny 13.1 (11.5-15.5) % Plt Count 269 (140-440) K/uL Neut % (Auto) 57.3 (42.0-72.0) % Lymph % (Auto) 28.9 (20-44) % [place] % (Auto) 10.8 (0.0-11.0) % Eos % (Auto) 2.0 (0.0-7.0) % Baso % (Auto) 0.7 (0.0-3.0) % Neut # (Auto) 5.17 (1.7-7.0) K/uL Lymph # (Auto) 2.60 (0.90-2.90) K/uL [place] # (Auto) 1.00 H (0.00-0.90) K/UL Eos # (Auto) 0.18 (0.00-0.50) K/uL Baso # (Auto) 0.06 (0.00-0.30) K/uL Abs Immat Gran (auto) 0.03 (0.00-0.30) K/uL Imm/Tot Granulo (auto) 0.3 % Sodium 142 (135-149) mmol/L Potassium 4.1 (3.6-5.1) mmol/L Chloride 109 (96-114) mmol/L Carbon Dioxide 25 (20-32) mmol/L Anion Gap 8 (7-15) mEq/L BUN 6 L (7-30) mg/dL Creatinine 0.7 (0.5-1.5) mg/dL Estimated Creat Clear 32.39 Estimated GFR 89 ml/min Glucose 101 (60-115) mg/dL Lactate 1.5 (0.5-1.9) mmol/L Calcium 9.3 (8.4-10.6) mg/dL Total Bilirubin 0.3 (0.1-1.5) mg/dL Direct Bilirubin 0.2 (0.0-0.5) mg/dL AST 30 (12-35) U/L ALT 23 (4-35) U/L Alkaline Phosphatase 63 (40-150) U/L Total Protein 6.9 (6.0-8.3) g/dL Albumin 4.6 (3.3-5.0) g/dL Urine Color (Yellow) Urine Appearance (Clear) Urine pH (5.0-8.5) Ur Specific [place] (1.000-1.030) Urine Protein (Negative) Urine Glucose (UA) (Negative) Urine Ketones (Negative) Urine Blood (Negative) Urine Nitrite (Negative) Urine Bilirubin (Negative) Urine Urobilinogen (0.2-1.0) Ur Leukocyte Esterase (Negative) Urine RBC (0-2) Urine WBC (0-5) Ur Squamous Epith Cells (None-Few) Urine Bacteria (None) Ethyl Alcohol 0.11 H (0.01-0.03) % POC Creatinine 0.9 (0.6-1.3) mg/dl POC Troponin I 0.01 (0.01-0.04) ng/ml 11/12/23 11/12/23 Range/Units 14:40 15:30 WBC (4.50-11.00) K/uL RBC (4.00-5.20) m/uL Hgb (12.0-16.0) gm/dL Hct (33.0-51.0) % MCV (80-100) fL MCH (26-34) pg MCHC (32-36) gm/dL RDW Coeff of Kenny (11.5-15.5) % Plt Count (140-440) K/uL Neut % (Auto) (42.0-72.0) % Lymph % (Auto) (20-44) % [place] % (Auto) (0.0-11.0) % Eos % (Auto) (0.0-7.0) % Baso % (Auto) (0.0-3.0) % Neut # (Auto) (1.7-7.0) K/uL Lymph # (Auto) (0.90-2.90) K/uL [place] # (Auto) (0.00-0.90) K/UL Eos # (Auto) (0.00-0.50) K/uL Baso # (Auto) (0.00-0.30) K/uL Abs Immat Gran (auto) (0.00-0.30) K/uL Imm/Tot Granulo (auto) % Sodium (135-149) mmol/L Potassium (3.6-5.1) mmol/L Chloride (96-114) mmol/L Carbon Dioxide (20-32) mmol/L Anion Gap (7-15) mEq/L BUN (7-30) mg/dL Creatinine (0.5-1.5) mg/dL Estimated Creat Clear Estimated GFR ml/min Glucose (60-115) mg/dL Lactate (0.5-1.9) mmol/L Calcium (8.4-10.6) mg/dL Total Bilirubin (0.1-1.5) mg/dL Direct Bilirubin (0.0-0.5) mg/dL AST (12-35) U/L ALT (4-35) U/L Alkaline Phosphatase (40-150) U/L Total Protein (6.0-8.3) g/dL Albumin (3.3-5.0) g/dL Urine Color Yellow (Yellow) Urine Appearance Clear (Clear) Urine pH 6.0 (5.0-8.5) Ur Specific [place] 1.010 (1.000-1.030) Urine Protein Negative (Negative) Urine Glucose (UA) Negative (Negative) Urine Ketones Negative (Negative) Urine Blood Trace-intact A (Negative) Urine Nitrite Negative (Negative) Urine Bilirubin Negative (Negative) Urine Urobilinogen 0.2 (0.2-1.0) Ur Leukocyte Esterase Negative (Negative) Urine RBC 0-2 (0-2) Urine WBC 0-2 (0-5) Ur Squamous Epith Cells None (None-Few) Urine Bacteria None (None) Ethyl Alcohol (0.01-0.03) % POC Creatinine (0.6-1.3) mg/dl POC Troponin I 0.00 L (0.01-0.04) ng/ml Imaging Data CT scan - head: Attestation: I have reviewed the pertinent imaging results. Radiologist's impression: IMPRESSION: Unremarkable noncontrast head CT. CTA head and Neck: Attestation: I have reviewed the pertinent imaging results. Radiologist's impression: CTA head: No large vessel occlusion. . CTA neck: No high-grade carotid artery stenosis, occlusion or dissection. Bilateral vertebral arteries are patent. . ECG Data Attestation: I personally reviewed and interpreted this ECG as follows: Interpretation: Normal sinus rhythm Rate: 64 NH: 128 QRS axis: Normal axis. No pathologic Q-waves ST segment/T wave: QTc: 402 Discharge Plan Discharge Clinical Impression: Alcohol intoxication, Dizziness, Chest pain Patient Disposition: Home w/ Parent or Adult Condition: Stable Instructions: Chest Pain (DC), Alcohol Intoxication (DC) Additional Instructions: As we discussed, so far the workup for your chest pain looks reassuring. If her chest pain continues or gets worse, please come back to the ER or see her doctor right away. Even if it gets better, please recheck up with your regular doctor within the next 3-4 days. Your alcohol level is elevated today. I am concerned that the alcohol is causing her dizziness and fall. Please abstain from further alcohol use. As we discussed, you can always come back to the ER to get resources for alcohol treatment if you want. Come back to the ER any time if you have any concerns. Locally no signs of any serious injuries from your fall today. Treatment plenty of fluids and eat healthy diet. Continue your regular medications. Prescriptions: No Action aspirin 81 mg tablet,delayed release (DR/EC) 81 mg PO DAILY multivitamin Tablet 1 tab PO QDAY calcium w/D PO BID Eliquis 2.5 mg tablet 2.5 mg PO BID Qty: 180 3RF omeprazole 20 mg capsule,delayed release(DR/EC) 20 mg PO QDAY PRN naratriptan 2.5 mg tablet 2.5 mg PO DAILY PRN (Reason: migraine headache) Qty: 9 0RF metoprolol tartrate 100 mg tablet 100 mg PO BID Qty: 180 2RF trazodone 150 mg tablet 150 mg PO QHS Qty: 90 2RF rosuvastatin 20 mg tablet 20 mg PO QDAY Qty: 90 2RF lisinopril 2.5 mg tablet 2.5 mg PO QDAY Qty: 90 2RF isosorbide dinitrate 30 mg tablet 30 mg PO TID Qty: 270 2RF Rx Instructions: allow nitrate-free interval of 12-14 hrs per 24-hr period clopidogrel 75 mg tablet 75 mg PO QDAY Qty: 90 2RF folic acid 1 mg tablet 1 mg PO QDAY Qty: 90 2RF magnesium oxide 400 mg (241.3 mg magnesium) tablet 400 mg PO QDAY Qty: 90 2RF nitroglycerin 0.4 mg tablet, sublingual 0.4 mg sublingual Q5M PRN (Reason: chest pain) Qty: 25 0RF Follow Up/Referrals: Tong Truong MD [Primary Care Provider] - Stand Alone Forms: [employer] Info Instructions
[2023-11-12] MEDS: ONDANSETRON 2 MG/ML inj 4 MG IVP ×2 (13:45→14:40)
[2023-11-12] MEDS: MECLIZINE HCL 25 MG TABLET PO (13:50)
[2023-11-12 13:57] LABS: Lactate* 1.5 mmol/L (0.5-1.9)
[2023-11-12 13:59] LABS: Basophils Absolute Auto 0.06 K/uL (0.00-0.30); Basophils Percent Auto 0.7 % (0.0-3.0); Eosinophils Absolute Auto 0.18 K/uL (0.00-0.50); Hematocrit 43.6 % (33.0-51.0); Hemoglobin* 14.3 gm/dL (12.0-16.0); Immature Granulocytes Abs Auto 0.03 K/uL (0.00-0.30); Immature Granulocytes Pct Auto 0.3 %; Lymphocytes Percent Auto 28.9 % (20-44); Mean Corpuscular HGB Conc 33 gm/dL (32-36); Mean Corpuscular Hemoglobin 31 pg (26-34); Mean Corpuscular Volume 95 fL (80-100); Monocytes Percent Auto 10.8 % (0.0-11.0); Neutrophils Absolute Auto 5.17 K/uL (1.7-7.0); Neutrophils Percent Auto 57.3 % (42.0-72.0); Platelet Count* 269 K/uL (140-440); RDW Coefficient of Variation % 13.1 % (11.5-15.5); White Blood Count* 9.01 K/uL (4.50-11.00)
[2023-11-12 14:03] LABS: Troponin, Point-of-Care* 0.01 ng/ml (0.01-0.04)
[2023-11-12 14:11] LABS: Creatinine, Point-of-Care* 0.9 mg/dl (0.6-1.3)
[2023-11-12 14:17] LABS: Chloride* 109 mmol/L (96-114); Sodium* 142 mmol/L (135-149)
[2023-11-12 14:18] LABS: Potassium* 4.1 mmol/L (3.6-5.1); Slide Review Reflex No
[2023-11-12 14:20] LABS: Anion Gap 8 mEq/L (7-15); Carbon Dioxide* 25 mmol/L (20-32); Creatinine* 0.7 mg/dL (0.5-1.5); Est. Creatinine Clearance* 32.39; Estimated Glomerular Filt Rate 89 ml/min; Ethanol* 0.11 % (0.01-0.03)
[2023-11-12 14:21] LABS: Blood Urea Nitrogen* 6 mg/dL (7-30); Calcium* 9.3 mg/dL (8.4-10.6); Glucose* 101 mg/dL (60-115)
[2023-11-12 14:48] LABS: Appearance Urine Clear (Clear); Bilirubin Urine Negative (Negative); Blood Urine Trace-intact (Negative); Color Urine Yellow (Yellow); Glucose Urine Negative (Negative); Ketones Urine Negative (Negative); Leukocyte Esterase Urine Negative (Negative); Nitrite Urine Negative (Negative); Protein Urine Negative (Negative); Urobilinogen Urine 0.2 (0.2-1.0)
[2023-11-12] MEDS: 0.9 % SODIUM CHLORIDE 1000 ml 1,000 ML IV (14:55)
[2023-11-12 14:59] LABS: RBC Urine 0-2 (0-2); WBC Urine 0-2 (0-5)
--- OUTSIDE RECORDS SUMMARY | 2023-11-12 15:06 | XMS_ITS | Clinical Summary ---
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 For routine questions regarding patient records, call [phone] during business hours, M-F 8:00 AM - 5:00 PM Central Time. Record requests for emergency care only can be directed to [phone] at any time.[facility] Allergies Active Allergy Reactions Criticality Noted Date Comments Codeine Nausea And Vomiting 06/13/2006 Sulfa (Sulfonamide Antibiotics) Rash,Hives (Reselect Reaction) 06/13/2006 Medications Medication Sig Dispensed Refills Start Date End Date Status metoprolol succinate (TOPROL-XL) 100 mg 24 hr tablet Take by mouth 2 (two) times a day. Active rosuvastatin (CRESTOR) 20 mg tablet Take 1 tablet by mouth at bedtime. 03/06/2021 Active traZODone (DESYREL) 150 mg tablet Take 150 mg by mouth at bedtime. 10/09/2020 Active aspirin 81 mg chewable tablet Chew 81 mg. 03/07/2021 Active apixaban (ELIQUIS) 2.5 mg tablet Take 2.5 mg by mouth. 11/12/2022 Active folic acid 1 mg tablet Take 1 mg by mouth. Active isosorbide dinitrate (ISORDIL) 30 mg tablet Take 30 mg by mouth. 11/16/2022 Active lisinopriL (PRINIVIL,ZESTRIL) 2.5 mg tablet Take 2.5 mg by mouth. 11/16/2022 Active magnesium oxide (MAG-OX) 400 mg (241.3 mg magnesium) tablet Take 400 mg by mouth. 10/18/2020 Active multivitamin tablet Take 1 tablet by mouth daily. Active calcium carbonate-vitamin D3 1,000 mg-20 mcg (800 unit) tablet Take 1 tablet by mouth 2 (two) times a day. Active hydroCHLOROthiazide (HYDRODIURIL) 12.5 mg tablet Take 1 tablet by mouth daily. As needed Active naratriptan (AMERGE) 2.5 mg tablet Take 2.5 mg by mouth as needed for migraine. Active ondansetron (ZOFRAN) 8 mg tablet Take 8 mg by mouth every 8 (eight) hours as needed for nausea. 07/12/2017 Active Active Problems Problem Noted Date Diagnosed Date Alcohol Dependence With Intoxication Unspecified 04/04/2021 Family History Medical History Relation Name Comments Alcohol abuse Father Relation Name Status Comments Father Social History Tobacco Use Types Packs/Day Years Used Date Smoking Tobacco: Every Day Cigarettes Smokeless Tobacco: Never Tobacco Cessation:Ready to Q uit: Not Asked; Counseling Given: Not Answered Alcohol Use Standard Drinks/Week Comments Not Currently 0 (1 standard drink = 0.6 oz pur e alcohol) Nutrition Answer Date Recorded Nutrition: EVOO Fat Source Unknown 05/01 Nutrition: Servings of Fruits/Vegetables per Day Not on file 05/01/2020 Dental Answer Date Recorded Dental: Regular Dentist Unknown 05/01/19 21 Sex and Gender Information Value Date Recorded Sex Assigned at Female 11/23/2022 3:20 PM CDT Gender Identity Female 11/23/2022 3:20 PM CDT Sexual Orientation Not on file Last Filed Vital Signs Vital Sign Reading Time Taken Comments Blood Pressure 136/98 07/13/2018 1:23 PM CDT Pulse 64 07/13/2018 1:23 PM CDT Temperature 36.8 ??C (98.2 ??F) 07/13/2018 1:23 PM CD T Respiratory Rate 16 07/13/2018 1:23 PM CDT Oxygen Saturation 100% 07/13/2018 1:23 PM CDT Inhaled Oxygen Concentration - - Weight - - Height - - Body Mass Index - - Plan of Treatment Health Maintenance Due Date Last Done Comments Hepatitis C Screening 1945 Tobacco Cessation counseling 1945 Depression Screening (Annual PHQ-2) 03/08/2023 Fall Risk Screen (Annual) 03/08/2023 COVID-19 Vaccine (2022-2 4 season) 2023 01/04/2023, 02/12/2022, 01/19/2021, Additional history exists Creatinine Level (Kidney Fun ction Test) 11/13/2023 11/12/2022, 11/11/2022, 11/10/2022, Additional history exists Potassium Level 11/13/2023 11/12/2022, 09/0 08/2022, 11/11/2022, Additional history exists Sodium Level 11/13/2023 11/12/2022, 09/0 08/2022, 11/10/2022, Additional history exists Influenza Vaccine (#1) 2023 , 02/12/2022, 01/06/2021, Additional history exists DTaP,Tdap,and Td Vaccines (4 - Td or Tdap) 03/25/2031 03/25/2021, 01/22/2010, 01/22/2010 Pneumococcal vaccine (65+ years) Completed 12/21/2016, 11/21/2016, 12/31/2014, Additional history exists Zoster Vaccines Completed 05/30/2018, 11/06, 01/25/2012, Additional history exists
--- OUTSIDE RECORDS SUMMARY | 2023-11-12 15:06 | XMS_ITS ---
Author Organization [facility] Address [address] [place] [address] Care Team Providers Care Senior Ios Developer Name Role Phone Unavailable Unavailable Unavailable Surgery Details Not on file Complications Check Surgery Details section. Procedure Estimated Blood Loss Check Surgery Details section. Procedure Findings Check Surgery Details section. Procedure Specimens Taken Check Surgery Details section.
--- OUTSIDE RECORDS SUMMARY | 2023-11-12 15:06 | XMS_ITS | Clinical Summary ---
Author Organization [employer] [facility] Address [place], [place] [address] Care Team Providers Care Silver Brazer Name Role Phone Tong Truong MD Primary Care Provider [phone] Tong Truong MD Unavailable [phone] Allergies Active Allergy Reactions Criticality Noted Date Comments Aspirin Agitation High 07/06/2022 Codeine Nausea And Vomiting 10/18/2020 Morphine *Unknown - Follow up needed 10/03/2019 Naloxone Agitation High 07/06/2022 Pentazocine Hallucinations,Agita t ion,Other - Describe In Comment Field High 09/02/2006 Hallucinations, Sulfa (Sulfonamide Antibiotics) *Unknown - Follow up needed,Rash,Hives 06/13/2006 Sumatriptan *Unknown High 07/06/2022 Medications Medication Sig Dispensed Refills Start Date End Date Status traZODone (DESYREL) 150 mg tablet Take 150 mg by mouth at bedtime. 10/09/2020 Active magnesium oxide (MAG-OX 400) 400 mg tabletIndications:Gas troparesis Take 1 Tablet (400 mg) by mouth once daily. 0 10/18/2020 Active naratriptan (AMERGE) 2.5 mg tablet Take 2.5 mg by mouth 2 times daily if needed for Migraine. Give at minimum 4hrs apart. Max Dose: 5mg per 24hrs. Active multivitamin (MVI) tablet Take 1 Tablet by mouth once daily. Active aspirin chewable 81 mg chewable tabletIndications:NST EAMON (non-ST elevated myocardial infarction) (HC) Chew 1 Tablet (81 mg) by mouth every morning. 90 Tablet 3 03/07/2021 Active rosuvastatin (CRESTOR) 20 mg tabletIndications:VIVIANA D (arteriosclerotic heart disease) Take 1 Tablet (20 mg) by mouth at bedtime. 30 Tablet 2 03/06/2021 Active apixaban (ELIQUIS) 2.5 mg tabletIndications:Cer ebral infarction, unspecified mechanism (HC) Take 1 Tablet (2.5 mg) by mouth two times daily. 60 Tablet 1 11/12/2022 Active isosorbide dinitrate (ISORDIL) 30 mg tabletIndications:Cor onary artery disease due to lipid rich plaque,HTN (hypertension) Take 1 Tablet (30 mg) by mouth three times daily. Hold for 3 days 0 11/16/2022 Active lisinopriL (PRINIVIL; ZESTRIL) 2.5 mg tabletIndications:Cor onary artery disease due to lipid rich plaque,HTN (hypertension) Take 1 Tablet (2.5 mg) by mouth once daily. 0 11/16/2022 Active calcium carbonate-vitamin D3, 500 mg-400 units, (OSCAL 500 + D) tablet Take 1 Tablet by mouth at bedtime. Active metoprolol tartrate (LOPRESSOR) 100 mg tablet Take 100 mg by mouth two times daily. Active Active Problems Problem Noted Date Diagnosed Date Status post fall 05/18/2023 Alcohol intoxication 05/18/2023 Alcohol use disorder 05/18/2023 Dyslipidemia 12/05/2022 Atrial fibrillation 12/05/2022 Ischemic stroke 11/11/2022 Aphasia 11/10/2022 Dysarthria 11/10/2022 Cerebral infarction 11/10/2022 Hypokalemia 06/08/[address] of the abdomen 06/08/2022 Transient elevated blood pressure 06/08/2022 Insomnia 06/01/2022 Colitis 06/01/2022 Near syncope 04/07/2021 Fall at home, initial encounter 04/04/2021 Alcohol intoxication in active alcoholic with co mplication 04/04/2021 Closed fracture of one rib of left side 04/04/19 22 Postural dizziness with near syncope 04/04/2021 CAD (coronary artery disease) 04/04/2021 Overview: 2020: DIAGNOSTIC SUMMARY ? ? The LAD is patent with mild distal disease ? ? The CX has a focal napkin-ring 90% stenosis in the Proximal segment at takeoff of small OM ? ? The RCA is large and dominant and has mild disease ? ? The RFA was closed with a Perclose ?? INTERVENTION ? ? 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 Gastroparesis 10/18/2020 Depression 10/18/2020 Anxiety 10/18/2020 Alcohol use disorder, severe, in early remission 10/18/2020 Unstable angina Encounters Date Type Department Care Team Description 11/02/2023 11:01 AM CDT - 11/02/2023 2:44 PM CDT Emergency [facility] [address] [place] [address] Stephanie Argueta MD Atypical chest pain (Primary Dx); Nausea; Acute nonintractable headache, unspecified headache type Discharge Disposition: Home Self Care 11/02/2023 Travel 09/08/2023 2:28 PM CDT - 09/08/2023 4:43 PM CDT Emergency [facility] [address] [place] [address] Toshia Cosme NP Other migraine without status migrainosus, not intractable (Primary Dx) Discharge Disposition: Home Self Care 09/08/2023 Travel from Last 3 Months Immunizations Name Administration Dates Next Due Influenza Virus, Unspecified 11/15/2017 Influenza, High-dose Inactivated 12/05/2019,10/0 03/2018 Pneumococcal Poly,23-Valent (Pneumovax) 11/22/19 17 Pneumococcal conj 13-Valent (Prevnar 13) 015 Td (Age >=7 Years) 01/22/2010 Zoster (Shingrix-RZV, recombinant) 05/30/2018, Zoster (Zostavax-ZVL, live) 01/25/2012 Family History Medical History Relation Name Comments Heart attack Father Spina bifida Sister 1 Lupus Sister 2 Rheum arthritis Sister 2 Relation Name Status Comments Father Mother Sister 1 Alive Sister 2 Alive Son 1 Alive Son 2 Alive Social History Tobacco Use Types Packs/Day Years Used Date Smoking Tobacco: Every Day Cigarettes 0.3 61.7 Started: 1962; Last attempted to quit: 1961 Smokeless Tobacco: Never Tobacco Cessation:Ready to Q uit: Not Asked; Counseling Given: Not Answered Alcohol Use Standard Drinks/Week Comments Not Currently 0 (1 standard drink = 0.6 oz pure alcohol) last drink 3 mos ago per pt statement PHQ-2 Answer Date Recorded PHQ-2 TOTAL SCORE 2 03/11/2021 Social Connections Answer Date Recorded Frequency of Communication with Friends and Fami ly 0 05/18/2023 Financial Resource Strain Answer Date R ecorded Difficulty of Paying Living Expenses 3 05/18/2023 Difficulty of Paying Living Expenses Not on file 05/18/2023 Food Insecurity Answer Date Recorded Worried About Running Out of Food in the Last Ye ar 1 05/18/2023 Transportation Needs Answer Date Record ed Lack of Transportation (Medical) 1 05/18/2023 Housing Stability Answer Date Recorded Unable to Pay for Housing in the Last Year 1 05/18/2023 Sex and Gender Information Value Date Recorded Sex Assigned at Not on file Gender Identity Not on file Sexual Orientation Not on file Obstetrics History Last Filed Vital Signs Vital Sign Reading Time Taken Comments Blood Pressure 131/80 11/02/2023 1:01 PM CDT Pulse 64 11/02/2023 1:01 PM CDT Temperature 37.3 ??C (99.1 ??F) 11/02/2023 11:10 AM C DT Respiratory Rate 20 11/02/2023 11:10 AM CDT Oxygen Saturation 99% 11/02/2023 1:01 PM CDT Inhaled Oxygen Concentration - - Weight 44.5 kg (98 lb 1.6 oz) 11/02/2023 11:10 A M CDT Height 152.4 cm (5') 11/02/2023 11:10 AM CDT Body Mass Index 19.16 11/02/2023 11:10 AM CDT Plan of Treatment Health Maintenance Due Date Last Done Comments Tdap 1956 Hepatitis C screening for age 18-79 12/19/1963 DEXA/DXA scan for age 65+ 2010 Medicare Wellness for age 65+ 2010 Tetanus booster 01/23/2020 01/22/2010 BMI (ht and wt on same day) for age 18+ 11/29/2021 11/29/2020, 10/18/2020 Depression screening for age 12+ 03/14/2022 03/14/19 22, 03/11/2021 COVID-19 vaccine series ( season) 2023 01/04/2023, 02/12/2022, 01/19/2021 Influenza for age 65+ 11/07/2023 12/05/2019 , 12/06/2018, 11/15/2017 Pneumococcal series for age 65+ Completed 7, 12/31/2014 Zoster (shingles) series for age 50+ Completed 05/30/2018, 11/15/2017, 01/25/2012 Procedures Procedure Name Priority Date/Time Associated Diagnosis Comments TROPONIN T (HS) ONE TIME Timed 11/02/2023 1:30 PM CDT CBC WITH AUTO DIFFERENTIAL STAT 11/02/2023 11:16 AM CDT ETHANOL SERUM OR PLASMA STAT 11/02/2023 11:16 AM CDT TROPONIN T (HS) ACUTE W/2HR REFLEX STAT 11/02/2023 11:16 AM CDT BASIC METABOLIC PANEL STAT 11/02/2023 11:16 AM CDT CBC WITH AUTO DIFFERENTIAL STAT 11/02/2023 11:16 AM CDT EKG 12 LEAD STAT 11/02/2023 11:[address] HEAD BRAIN WO STAT 09/08/2023 3:00 PM CDT ETHANOL SERUM OR PLASMA STAT 09/08/2023 2:45 PM CDT CBC WITH AUTO DIFFERENTIAL STAT 09/08/2023 2:45 PM CDT HEPATIC FUNCTION PANEL STAT 2:45 PM CDT PROTIME-INR STAT 09/08/2023 2:45 PM CDT LIPASE STAT 09/08/2023 2:45 PM CDT SEDIMENTATION RATE STAT 09/08/2023 2: 45 PM CDT C-REACTIVE PROTEIN STAT 09/08/2023 2: 45 PM CDT BASIC METABOLIC PANEL STAT 09/08/2023 2:45 PM CDT CBC WITH AUTO DIFFERENTIAL STAT 09/08/2023 2:45 PM CDT from Last 3 Months Results * (ABNORMAL) TROPONIN T (HS) ONE TIME (11/02/2023 1:30 PM CDT) Pathologist [facility] TROPONIN T HS 12(H) 6-10 ng/L ng/L 11/02/2023 1:53 PM CDT [facility] Blood BLOOD SPECIMEN / Unknown Venipuncture / Unknown 11/02/2023 1:30 PM CDT 11/02/2023 1:35 PM CDT Stephanie Argueta MD CHEMISTRY Performing Organization Address City/[facility] Co de Phone Number [facility] [address] [place] [address] * (ABNORMAL) TROPONIN T (HS) ACUTE W/2HR REFLEX (11/02/2023 11:16 AM CDT) Pathologist [facility] TROPONIN T HS 11(H) 6-10 ng/L ng/L 11/02/2023 11:41 AM CDT [facility] Blood BLOOD SPECIMEN / Unknown Venipuncture / Unknown 11/02/2023 11:16 AM CDT 11/02/2023 11:20 AM CDT Narrative [facility] - 11/02/2023 11:41 AM CDT hs-cTnT (Elecsys Troponin T Gen 5) concentration (s) above the sex-specific 99th percentile (16 ng/L or greater for males or 11 ng/L or greater for females) are indicative of myocardial injury. If initial hs-cTnT <=100 ng/L at presentation, a 0h/2h ABSOLUTE (ng/L) delta change (rising or falling) of >=10 ng/L suggests a significant change, whereas a 0h/2h delta change <=3 ng/L suggests no significant change. If initial hs-cTnT >100 ng/L at presentation, a 0h/2h/ RELATIVE (percent, %) delta change of 20% is suggested to distinguish patients with acute vs. chronic myocardial injury. There are multiple etiologies that can cause hs-cTnT increases above the 99th percentile (myocardial injury) other than acute myocardial infarction. Clinical context and careful clinical evaluation are critical for diagnosis and risk-stratification. The diagnosis of acute myocardial infarction requires a rising and/or falling pattern in hs-cTnT concentrations with at least one value above the sex-specific 99th percentile PLUS at least one of the following clinical criteria: ischemic symptoms, new or presumed new significant ST-T wave changes or new LBBB, development of pathological Q waves, imaging evidence of new loss of viable myocardium or new regional wall motion abnormality, or identification of intracoronary atherothrombosis or an acute angiographic culprit on coronary angiography. In appropriate low-risk patients with a non-ischemic electrocardiogram without active chest pain with a symptom onset >3-hours without recurrence, a single initial hs-cTnT<6 ng/L identifies patient with a very low risk in emergency department patient population. Stephanie Argueta MD CHEMISTRY [facility] [address] [place] [address] * CBC WITH AUTO DIFFERENTIAL (11/02/2023 11:16 AM CDT) Only the most recent of2 resultswithin the time period is included. WHITE BLOOD COUNT 9.3 4.5 - 11.0 thou/cu mm 11/02/2023 11:24 AM [facility] RED BLOOD COUNT 4.71 4.00 - 5.20 mil/cu mm 11/02/2023 11:24 AM [facility] HEMOGLOBIN 14.4 12.0 - 16.0 g/dL 11/02/2023 11:24 AM [facility] HEMATOCRIT 43.5 33.0 - 51.0 % 11/02/2023 11:24 AM [facility] MCV 92 80 - 100 fL 11/02/2023 11:24 AM [facility] MCH 30.6 26.0 - 34.0 pg 11/02/2023 11:24 AM [facility] MCHC 33.1 32.0 - 36.0 g/dL 11/02/2023 11:24 AM [facility] RDW 13.3 11.5 - 15.5 % 11/02/2023 11:24 AM [facility] PLATELET COUNT 264 140 - 440 thou/cu mm 11/02/2023 11:24 AM [facility] MPV 10.0 6.5 - 11.0 fL 11/02/2023 11:24 AM [facility] % NEUT 64.7 % 11/02/2023 11:24 AM [facility] % LYMPH 23.6 % 11/02/2023 11:24 AM [facility] % MONO 8.8 % 11/02/2023 11:24 AM [facility] % EOS 2.1 % 11/02/2023 11:24 AM [facility] % BASO 0.8 % 11/02/2023 11:24 AM [facility] ABSOLUTE NEUTROPHILS 6.0 1.7 - 7.0 thou/cu mm 11/02/2023 11:24 AM [facility] ABSOLUTE LYMPHOCYTES 2.2 0.9 - 2.9 thou/cu mm 11/02/2023 11:24 AM [facility] ABSOLUTE MONOCYTES 0.8 <0.9 thou/cu mm 11/02/2023 11:24 AM CDT [facility] ABSOLUTE EOSINOPHILS 0.2 <0.5 thou/cu mm 11/02/2023 11:24 AM CDT [facility] ABSOLUTE BASOPHILS 0.1 <0.3 thou/cu mm 11/02/2023 11:24 AM CDT [facility] Blood BLOOD SPECIMEN / Unknown Venipuncture / Unknown 11/02/2023 11:16 AM CDT 11/02/2023 11:20 AM CDT Stephanie Argueta MD HEMATOLOGY Performing Organization Address City/[facility]/ZIP Co de Phone Number [facility] [address] [place] [address] * (ABNORMAL) ETHANOL SERUM OR PLASMA (11/02/2023 11:16 AM CDT) Only the most recent of2 resultswithin the time period is included. ETHANOL 0.092(H) <0.010 g/dL 11/02/2023 11:40 AM CDT [facility] Blood BLOOD SPECIMEN / Unknown Venipuncture / Unknown 11/02/2023 11:16 AM CDT 11/02/2023 11:20 AM CDT Stephanie Argueta MD CHEMISTRY Performing Organization Address [facility]/ZIP Co de Phone Number [facility] [address] [place] [address] * (ABNORMAL) BASIC METABOLIC PANEL (11/02/2023 11:16 AM CDT) Only the most recent of2 resultswithin the time period is included. SODIUM 142 136 - 145 mmol/L 11/02/2023 11:41 AM CDT [facility] POTASSIUM 3.7 3.5 - 5.1 mmol/L 11/02/2023 11:41 AM CDT [facility] CHLORIDE 107 98 - 107 mmol/L 11/02/2023 11:41 AM T [facility] CO2,TOTAL 24 22 - 29 mmol/L 11/02/2023 11:41 AM T [facility] ANION GAP 11 5 - 18 11/02/2023 11:41 AM [facility] GLUCOSE 138(H) 70 - 99 mg/dL 11/02/2023 11:41 AM [facility] CALCIUM 9.4 8.8 - 10.2 mg/dL 11/02/2023 11:41 AM [facility] BUN 8 8 - 23 mg/dL 11/02/2023 11:41 AM [facility] CREATININE 0.79 0.50 - 0.90 mg/dL 11/02/2023 11:41 AM [facility] BUN/CREAT RATIO 10 10 - 20 11:41 AM [facility] eGFR 77(L) >90 mL/min/1.7 3m2 11/02/2023 11:41 AM [facility] Comment:As of 2021, eG FR is calculated by the CKD-EPI creatinine equation without race adjustment. ??eGFR can be influenced by muscle mass, exercise, and diet. ??The reported eGFR is an estimation only and is only applicable if the renal function is stable. Blood BLOOD SPECIMEN / Unknown Venipuncture / Unknown 11/02/2023 11:16 AM CDT 11/02/2023 11:20 AM CDT Stephanie Argueta MD CHEMISTRY [facility] [address] [place] [address] * EKG 12 LEAD (11/02/2023 11:14 AM CDT) Interpretation Normal sinus rhythm Normal ECG When compared with ECG of 22-May-2023 12:38, Premature ventricular complexes are no longer Present Nonspecific T wave abnormality no longer evident in Inferior leads Nonspecific T wave abnormality no longer evident in Lateral leads BEYOND NOW Ventricular Rate 65 BPM BEYOND NOW Atrial Rate 65 BPM BEYOND NOW P-R Interval 118 ms BEYOND NOW QRS Duration 76 ms BEYOND NOW QT 400 ms BEYOND NOW QTc 416 ms BEYOND NOW P [place] 10 degrees BEYOND NOW R [place] 59 degrees BEYOND NOW T [place] 56 degrees BEYOND NOW 11/02/2023 11:1 4 AM CDT 11/02/2023 11:20 AM CDT Stephanie Argueta MD EKG ORD BEYOND NOW [place], [place] * CT HEAD BRAIN WO (09/08/2023 3:00 PM CDT) Anatomical Region Laterality Modality HEAD, BRAIN Computed Tomogra phy 09/08/2023 3:12 PM CDT Impressions 09/08/2023 3:12 PM CDT No acute intracranial process per unenhanced head CT. Please note that all CT scans at this facility use dose modulation, iterative reconstruction, and/or weight-based dosing when appropriate to reduce radiation dose to as low as reasonably achievable. Dictated by Anish Lopez MD @ 09/08/2023 3:12:53 PM (Electronically Signed) Narrative 09/08/2023 3:12 PM CDT For Patients: ??As a result of the Cures Act, medical imaging exams and procedure reports are released immediately into your electronic medical record. ??You may view this report before your referring provider. ??If you have questions, please contact your health care provider. INDICATION: Headache, chronic, new features or increased frequency TECHNIQUE: CT head without contrast. COMPARISON: May 2023. FINDINGS: No intracranial hemorrhage. No discrete mass or mass effect. There is no midline shift. The basilar cisterns are patent. No hydrocephalus. The gaytan-white matter interface is otherwise preserved. No acute osseous abnormality. No extracalvarial soft tissue abnormality. The mastoid air cells are clear. The paranasal sinuses are well-aerated. The visualized portions of the orbits and globes are unremarkable. Procedure Note Anish Lopez MD - 09/08/2023 For Patients: As a result of the Cures Act, medical imagingexams and procedure reports are released immediately into your electronicmedical record. You may view this report before your referring provider.If you have questions, please contact your health care provider. INDICATION: Headache, chronic, new features or increased frequency TECHNIQUE: CT head without contrast. COMPARISON: May 2023. FINDINGS: No intracranial hemorrhage. No discrete mass or mass effect. There is nomidline shift. The basilar cisterns are patent. No hydrocephalus. Thegray-white matter interface is otherwise preserved. No acute osseous abnormality. No extracalvarial soft tissue abnormality.The mastoid air cells are clear. The paranasal sinuses are well-aerated. The visualized portions of the orbits and globes are unremarkable. IMPRESSION: No acute intracranial process per unenhanced head CT. Please note that all CT scans at this facility use dose modulation,iterative reconstruction, and/or weight-based dosing when appropriate toreduce radiation dose to as low as reasonably achievable. Dictated by Anish Lopez MD @ 09/08/2023 3:12:53 PM (Electronically Signed) Toshia Cosme MACHINE OPERATOR CT * SEDIMENTATION RATE (09/08/2023 2:45 PM CDT) SEDIMENTATION RATE 9 <30 mm/hr 2023 3:24 PM CDT [facility] Blood BLOOD SPECIMEN / Unknown Venipuncture / Unknown 09/08/2023 2:45 PM CDT 09/08/2023 2:51 PM CDT Toshia Cosme NP HEMATOLOGY Performing Organization Address [facility]/ZIP Co de Phone Number [facility] [address] [place] [address] * C-REACTIVE PROTEIN (09/08/2023 2:45 PM CDT) C-REACTIVE PROTEIN <0.3 <0.5 mg/dL 09/08/2023 3:21 PM CDT [facility] Blood BLOOD SPECIMEN / Unknown Venipuncture / Unknown 09/08/2023 2:45 PM CDT 09/08/2023 2:51 PM CDT Toshia Cosme NP CHEMISTRY [facility] [address] [place] [address] * PROTIME-INR (09/08/2023 2:45 PM CDT) INR 0.9 <1.3 09/08/2023 3:07 PM CDT [facility] PROTIME 10.3 10.3 - 12.3 sec 09/08/2023 3:07 PM CDT [facility] Blood BLOOD SPECIMEN / Unknown Venipuncture / Unknown 09/08/2023 2:45 PM CDT 09/08/2023 2:51 PM CDT Narrative [facility] - 09/08/2023 3:07 PM CDT ?Therapeutic Range 2.0-3.0 for most anticoagulated patients 2.5-3.5 or 4.0 for high risk patients The INR is only used for patients on stable oral anticoagulant therapy. It makes no significant contribution to the diagnosis or treatment of patients whose Protime is prolonged for other reasons. INR results are increased when heparin levels exceed 1.0 U/mL, which corresponds to an aPTT >125 seconds if the patient is on UFH. Toshia Cosme NP HEMATOLOGY Performing Organization Address [facility] Co de Phone Number [facility] [address] [place] [address] * LIPASE (09/08/2023 2:45 PM CDT) LIPASE 54.7 13.0 - 60.0 IU/L 09/08/2023 3:15 PM CDT [facility] Blood BLOOD SPECIMEN / Unknown Venipuncture / Unknown 09/08/2023 2:45 PM CDT 09/08/2023 2:51 PM CDT Toshia Cosme NP CHEMISTRY Performing Organization Address [facility] Co de Phone Number [facility] [address] [place] [address] * (ABNORMAL) HEPATIC FUNCTION PANEL (09/08/2023 2:45 PM CDT) ALBUMIN 4.6 4.0 - 4.9 g/dL 09/08/2023 3:15 PM CDT [facility] PROTEIN,TOTAL 7.2 6.0 - 8.0 g/dL 09/08/2023 3:15 PM CDT [facility] BILIRUBIN,TOTAL 0.3 0.0 - 1.2 mg/dL 09/08/2023 3:15 PM CDT [facility] BILIRUBIN,DIRECT <0.2 0.0 - 0.3 mg/dL 09/08/2023 3:15 PM CDT [facility] BILIRUBIN,INDIRE CT 09/08/2023 3:15 PM CDT [facility] Comment:Unable to calculate, Direct Bili <0.2 ALK PHOSPHATASE 78 35 - 104 IU/L 09/08/2023 3:15 PM CDT [facility] ALT (SGPT) 6(L) 10 - 35 IU/L 09/08/2023 3:15 PM T [facility] AST (SGOT) 21 10 - 35 IU/L 09/08/2023 3:15 PM T [facility] Blood BLOOD SPECIMEN / Unknown Venipuncture / Unknown 09/08/2023 2:45 PM CDT 09/08/2023 2:51 PM CDT Toshia Cosme MACHINE OPERATOR CHEMISTRY Performing Organization Address City/State/[facility] Co de Phone Number [facility] [address] [place] [address] from Last 3 Months Advance Directives Documents on File Type Date Recorded Patient Pilot Teacher Expl anation Healthcare Directive 12/10/2017 018 * Full Code (Latest Code Status on File) Date Activated Date Inactivated Comments 05/18/2023 10:58 PM 05/20/2023 5:08 PM Question Answer Comments Code Status Discussion: Reviewed Preferences * Full Code Date Activated Date Inactivated Comments 12/05/2022 5:58 PM 12/08/2022 4:33 PM Question Answer Comments Code Status Discussion: Reviewed Preferences * Full Code Date Activated Date Inactivated Comments 11/10/2022 11:08 AM 11/12/2022 2:26 PM Question Answer Comments Code Status Discussion: Reviewed Preferences * Full Code Date Activated Date Inactivated Comments 06/01/2022 4:46 PM 06/08/2022 1:47 PM Question Answer Comments Code Status Discussion: Reviewed Preferences * Full Code Date Activated Date Inactivated Comments 04/05/2021 10:30 PM 04/06/2021 6:45 PM Question Answer Comments Code Status Discussion: Reviewed Preferences Care Teams Silver Brazer Relationship Specialty Start Date End Date Tong Truong MD [address] [place] [phone] PCP - General Family Practice 04/28/21 Tong Truong MD [address] [place] [phone] Family Practice 04/28/21
--- OUTSIDE RECORDS SUMMARY | 2023-11-12 15:06 | XMS_ITS | Referral Summary ---
Author Organization [facility] Address [address] [place] [address] Care Team Providers Care Sports Athletic Trainer Name Role Phone Unavailable Primary Care Provider Unavailabl e Source Comments Patient records contain information from all sites at [facility]. For routine questions regarding patient records, call [phone] during business hours, M-F 8:00 AM - 5:00 PM Central Time. Record requests for emergency care only can be directed to [phone] at any time.[facility] Allergies Active Allergy Reactions Criticality Noted Date [...] Date Alcohol Dependence With Intoxication Unspecified 04/04/2021 Social History Tobacco Use Types Packs/Day Years [...] Mass Index - - Plan of Treatment Not on file
[2023-11-12 15:10] LABS: Albumin* 4.6 g/dL (3.3-5.0)
[2023-11-12 15:13] LABS: Alanine Aminotransferase* 23 U/L (4-35); Alkaline Phosphatase* 63 U/L (40-150); Aspartate Amino Transferase* 30 U/L (12-35); Bilirubin Direct* 0.2 mg/dL (0.0-0.5); Bilirubin Total* 0.3 mg/dL (0.1-1.5); Total Protein* 6.9 g/dL (6.0-8.3)
== END 2023-11-12 16:45 | disposition home or self-care (01) ==
PROVIDERS: Emergency Provider Emergency Medicine; PCP Family Medicine
DX: F10.129 Alcohol abuse with intoxication, unspecified (principal); R42 Dizziness and giddiness; R07.9 Chest pain, unspecified
CPT/HCPCS: 36415; 70450; 70496; 70498; 80048; 80076; 81001; 82077; 82565; 83605; 84484; 85025; 93005; 96361; 96374; 96376; 99284; 99285; A9270; J2405; J7030; Q9967

== ENCOUNTER 2023-11-17 14:42 | Emergency (ER) | payer MEDICARE, MEDICAID, SELFPAY ==
[2023-11-17] VITALS (12 sets, daily range): BP systolic 138–211; BP diastolic 75–96; PULSE 68–84; RESP 16–18; TEMP 37.4; O2SAT 95–98; BMI 18.9
--- NOTE | 2023-11-17 14:51 | ED.GENADULT ---
HPI - General Adult General Time Seen by Provider: 14:52 Date Seen: 11/17/23 Chief complaint: Chest Pain Stated complaint: chest pain Time Seen by Provider: 11/17/23 14:51 Source: patient, EMS, RN notes reviewed and old records reviewed Mode of arrival: EMS Limitations: no limitations History of Present Illness HPI narrative: This 77-year-old female was brought from her home in [facility] where she requested to come to our ER for chest pain. She states she started with left substernal chest pain radiating to her left arm. She took 4 baby aspirin tablets with the onset of this pain, baseline is on 81 mg daily which are ready took at home. She did take 2 nitroglycerin with some reported relief to EMS. She was noted to sleep all the way from [place] to here. She denies being sick with anything, no cough or cold symptoms. She states we absolutely have to figure out was going on here. She tells me her symptoms are improved. Denies any alcohol use. She is adamant that we transferred her to [facility] recently. I can see in her records where she was in for lengthy workup on November 11 and was found to have alcohol intoxication. She had serial troponins, extensive blood work, head CT, CTA of her head neck. She was discharged to her son's care whom brought her home. In any event, when at [facility] she states they did some type of test on her heart. Does not sound like she went back to angiography. Her past medical history is significant for atrial fibrillation which may be prox is mall, on Eliquis, metoprolol. She also has underlying anxiety, hypertension, dyslipidemia. She does have coronary artery disease with reported history of an CA. she has migraine headaches, chronic low back pain. 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 She is reporting that this is not a chronic finding for her any longer. Her son did tell prior ER physician on November 11 that she is a chronic drinker. Related Data Home Medications ?Medication ?Instructions ?Recorded ?Confirmed aspirin 81 mg tablet,delayed 81 mg PO DAILY 07/06/22 11/17/23 release calcium w/D PO BID 07/06/22 05/24/23 multivitamin 1 tab PO QDAY 07/06/22 11/17/23 omeprazole 20 mg capsule,delayed 20 mg PO QDAY PRN 05/24/23 11/17/23 release Previous Rx's ?Medication ?Instructions ?Recorded naratriptan 2.5 mg tablet 2.5 mg PO DAILY PRN migraine 02/05/23 headache #9 tabs apixaban 2.5 mg tablet (Eliquis) 2.5 mg PO BID #180 tabs 05/24/23 metoprolol tartrate 100 mg tablet 100 mg PO BID #180 tabs 09/15/23 isosorbide dinitrate 30 mg tablet 30 mg PO TID #270 tabs 09/17/23 lisinopril 2.5 mg tablet 2.5 mg PO QDAY #90 tabs 09/17/23 rosuvastatin 20 mg tablet 20 mg PO QDAY #90 tabs 09/17/23 trazodone 150 mg tablet 150 mg PO QHS #90 tabs 09/17/23 clopidogrel 75 mg tablet 75 mg PO QDAY #90 tabs 09/20/23 folic acid 1 mg tablet 1 mg PO QDAY #90 tabs 09/20/23 magnesium oxide 400 mg (241.3 mg 400 mg PO QDAY #90 tabs 09/20/23 magnesium) tablet nitroglycerin 0.4 mg sublingual 0.4 mg sublingual Q5M PRN chest 09/20/23 tablet pain #25 tabs isosorbide mononitrate 30 mg 30 mg PO QAM #30 tabs 11/17/23 tablet,extended release 24 hr Allergies Allergy/AdvReac Type Severity Reaction Status Date / Time aspirin Allergy Intermediate aggitation Verified 11/17/23 15:07 codeine Allergy Intermediate nausea and Verified 11/17/23 15:07 vomiting naloxone Allergy Intermediate aggitation Verified 11/17/23 15:07 pentazocine [From [facility]] Allergy Intermediate aggitation Verified 11/17/23 15:07 Sulfa (Sulfonamide Allergy Verified 11/17/23 15:07 Antibiotics) Review of Systems Status of ROS: Reports: 6 or more systems reviewed and unremarkable except as noted in History and below [facility] Medical History (Updated 11/17/23 @ 17:45 by Rachelle Nguyễn MD) History of stroke ?Z86.73 - Personal history of transient ischemic attack (TIA), and cerebral infarction without residual deficits (ICD-10) Proctocolitis (06/2022) ?K52.9 - Noninfective gastroenteritis and colitis, unspecified (ICD-10) History of ganglion cyst ?Z87.39 - Personal history of other diseases of the musculoskeletal system and connective tissue (ICD-10) History of alcohol abuse ?F10.11 - Alcohol abuse, in remission (ICD-10) GERD (gastroesophageal reflux disease) ?K21.9 - Gastro-esophageal reflux disease without esophagitis (ICD-10) Gastroparesis ?K31.84 - Gastroparesis (ICD-10) Surgical History Presence of stent in coronary artery ?Z95.5 - Presence of coronary angioplasty implant and graft (ICD-10) History of tonsillectomy ?Z90.89 - Acquired absence of other organs (ICD-10) History of breast biopsy ?Z98.890 - Other specified postprocedural states (ICD-10) Status post hysterectomy ?Z90.710 - Acquired absence of both cervix and uterus (ICD-10) Status post cholecystectomy ?Z90.49 - Acquired absence of other specified parts of digestive tract (ICD-10) Status post appendectomy ?Z90.49 - Acquired absence of other specified parts of digestive tract (ICD-10) Social History Narrative: financial difficulty- ex misleading about debt What is your current living situation?: I presently have a place to live Problems where you live: pests, such as bugs, ants, or mice In the past 12 months, utilities in danger of being shut off: no In past 12 months, lack of transportation kept you from medical appts, meetings, work, or getting things needed for daily living: yes In the past 12 mos, have been you worried that your food would run out before you had money to buy more?: sometimes true In the past 12 mos, the food you bought just didn't last and you didn't have money to buy more?: never true Smoking Status: Current every day smoker What tobacco products do you use: cigarettes Do you use any of these nicotine containing products: E-Cigarettes Second hand tobacco smoke exposure: No How often do you have a drink containing alcohol: monthly or less How often do you have six or more drinks on one occasion: Never AUDIT-C Alcohol total score: 1 Non-prescribed substance use: denies use How often does anyone, including family, friends and others, physically hurt you: never How often does anyone, including family, friends and others, insult or talk down to you: never How often does anyone, including family, friends and others, threaten you with harm: never How often does anyone, including family, friends and others, scream or curse at you: never Little interest or pleasure in doing things: not at all Feeling down, depressed, or hopeless: several days Exam Const: Vital Signs, click to edit/add: Vital Signs - 24 hr 11/17/23 14:55 11/17/23 15:02 11/17/23 16:00 Temperature 99.4 F Pulse Rate Pulse Rate [Pulse Oximeter] 74 68 Respiratory Rate 16 16 Blood Pressure [Le ft Upper Arm] 138/75 147/87 H Pulse Oximetry 98 95 95 Oxygen Delivery Me thod Room Air 11/17/23 16:55 11/17/23 17:00 11/17/23 17:05 Temperature Pulse Rate 73 75 Pulse Rate [Pulse Oximeter] 75 Respiratory Rate 18 Blood Pressure [Le ft Upper Arm] 146/81 H Pulse Oximetry 97 98 97 Oxygen Delivery Me thod Room Air 77-year-old female is alert, interactive, no apparent distress but anxious. She is of slender frame. Pupils are equal round reactive, sclera clear, extraocular muscles intact. Symmetrical facial function, able to speak in complete sentences. Neck supple, no adenopathy, no thyromegaly masses or nodules, no JVDs tension. Lungs are clear, good air entry, no wheezing crackles. CV regular rate and rhythm, no murmur, normal S1-S2, no S3-S4. Abdomen is soft, nontender, nondistended, no organomegaly. She has no lower extremity edema. Using all extremities. Documenting provider has reviewed patient's vital signs: yes Course Course ED Course: Patient states her pain has improved. She will be on cardiac monitoring, pulse oximetry. Will certainly get troponins on her, make sure she is monitored for arrhythmia. Initial EKG is certainly reassuring. She does have a history of coronary artery disease. Other possible etiologies are GI, musculoskeletal, pulmonary with infectious etiology. Thromboembolic disease also possibility. Right now she states her symptoms have improved which is reassuring, discussed with her that I would likely talk to Cardiology eventually. I will see if I can pull up her records, she is quite adamant that she was transferred from here to [facility] in that is just not what our records show. Reevaluation(s) Time of Reevaluation #1: 17:33 Reevaluation #1: Reviewed with patient that she has normal troponins, that I spoke with cardiology Dr. Razo from [facility]. She is not sure if she is on Imdur, believes that she only uses prn nitroglycerin. We discussed that her potassium was mildly low, will have her take oral effervescent potassium prior to discharge. Time of Reevaluation #2: 17:38 Reevaluation #2: Nursing staff has contacted her pharmacy in [facility]. She had a 1 month prescription in September for Imdur 30 mg t.i.d., confirmed t.i.d.. I do wonder if this was a mistake. We will get her back on Imdur 30 mg daily. Consultations Consultation #1: Spoke with sql ssrs developer Dr. Razo from [facility]. Reviewed her case. He was wondering if she is still on her Imdur 30 mg daily, reviewed with him that I would have to talk to her. If she was, he wondered about putting her up to 60 mg. Our troponins here are negative but he does note that she has gone in a few times and her troponins in their system will slightly bump and then go back down to normal. She had stress testing in December of 2022 and her stent was patent and there was no obstructive disease elsewhere. He states this does not rule out potential small-vessel disease. He notes though that she had no evidence of any significant epicardial disease in December of 2022. Time: 16:58 Vital Signs Vital signs: Initial Vital Signs Temperature 99.4 F 11/17/23 14:55 Temperature Source Temporal Artery Scan 11/17/23 14:55 Pulse Rate 74 11/17/23 14:55 Respiratory Rate 16 11/17/23 14:55 Blood Pressure 138/75 11/17/23 14:55 Blood Pressure Mean 96 11/17/23 14:55 Blood Pressure Position Sitting 11/17/23 14:55 Pulse Oximetry 98 11/17/23 14:55 Oxygen Delivery Method Room Air 11/17/23 14:55 Vital Signs Temperature 99.4 F 11/17/23 14:55 Pulse Rate 74 11/17/23 14:55 Respiratory Rate 16 11/17/23 14:55 Blood Pressure 138/75 11/17/23 14:55 Pulse Oximetry 98 11/17/23 14:55 Oxygen Delivery Method Room Air 11/17/23 14:55 Temperature 99.4 F 11/17/23 14:55 Pulse Rate 75 11/17/23 17:05 Respiratory Rate 18 11/17/23 17:05 Blood Pressure 146/81 H 11/17/23 17:05 Pulse Oximetry 97 11/17/23 17:05 Oxygen Delivery Method Room Air 11/17/23 17:05 Medications Administered Medications: Discontinued Medications Generic Name Dose Route Start Last Admin Trade Name Stefan PRN Reason Stop Dose Admin Acetaminophen 1,000 mg 11/17/23 15:49 11/17/23 16:00 Acetaminophen 500 Mg Tablet PO 11/17/23 15:50 1,000 mg ONCE ONE Administration Medical Decision Making Medical Records Medical records reviewed: Yes I reviewed the patient's medical records Medical records narrative: Did pull up the [facility] chart, she was taken by EMS to [facility] directly from her home, was hypotensive. She was hospitalized, she had a head CT which did not show any acute pathology, probable underlying microvascular disease. She did complain of a headache while there. She had initial minimal elevated tropes but then follow-up was negative. I cannot see where she had any stress testing done. She was essentially hospitalized overnight November 12 to November 13. Lab Data Lab results reviewed: Yes I reviewed the patient's lab results Labs: Lab Results 11/17/23 11/17/23 11/17/23 Range/Units 15:03 15:40 16:50 WBC 11.38 H (4.50-11.00) K/uL RBC 4.72 (4.00-5.20) m/uL Hgb 14.8 (12.0-16.0) gm/dL Hct 44.4 (33.0-51.0) % MCV 94 (80-100) fL MCH 31 (26-34) pg MCHC 33 (32-36) gm/dL RDW Coeff of Kenny 13.0 (11.5-15.5) % Plt Count 242 (140-440) K/uL Neut % (Auto) 70.1 (42.0-72.0) % Lymph % (Auto) 20.3 (20-44) % Jennings % (Auto) 7.7 (0.0-11.0) % Eos % (Auto) 1.2 (0.0-7.0) % Baso % (Auto) 0.6 (0.0-3.0) % Neut # (Auto) 8.00 H (1.7-7.0) K/uL Lymph # (Auto) 2.30 (0.90-2.90) K/uL Jennings # (Auto) 0.90 (0.00-0.90) K/UL Eos # (Auto) 0.10 (0.00-0.50) K/uL Baso # (Auto) 0.10 (0.00-0.30) K/uL Abs Immat Gran (auto) 0.00 (0.00-0.30) K/uL Imm/Tot Granulo (auto) 0.1 % ESR 5 (2-20) mm/hr INR 0.91 (0.91-1.10) APTT 27 (23-33) Seconds D-Dimer Quant (PE/DVT) 0.58 H (0.00-0.50) ug/ml Sodium 140 (135-149) mmol/L Potassium 3.2 L (3.6-5.1) mmol/L Chloride 104 (96-114) mmol/L Carbon Dioxide 28 (20-32) mmol/L Anion Gap 8 (7-15) mEq/L BUN 11 (7-30) mg/dL Creatinine 0.7 (0.5-1.5) mg/dL Estimated Creat Clear 32.72 Estimated GFR 89 ml/min Glucose 106 (60-115) mg/dL Lactate 1.4 (0.5-1.9) mmol/L Calcium 9.6 (8.4-10.6) mg/dL Total Bilirubin 0.7 (0.1-1.5) mg/dL AST 30 (12-35) U/L ALT 21 (4-35) U/L Alkaline Phosphatase 59 (40-150) U/L Troponin I 0.01 (0.01-0.04) ng/mL C-Reactive Protein < 0.5 L (0.5-1.0) mg/dL NT-Pro-B Natriuret Pep 974 pg/mL Total Protein 7.3 (6.0-8.3) g/dL Albumin 4.7 (3.3-5.0) g/dL Ethyl Alcohol < 0.01 L (0.01-0.03) % POC Troponin I 0.00 L 0.01 (0.01-0.04) ng/ml ECG Data Attestation: I personally reviewed and interpreted this ECG as follows: (Normal sinus rhythm, 77 beats per minute. No acute ischemic disease noted, no infarct.) Prior ECG tracings: available for review (No significant change.) Interpretation: Repeat EKG at 4:54 p.m. shows sinus rhythm, Pac seen, rate 75 beats per minute. No evidence of any ischemia or infarct. Discharge Plan Discharge Clinical Impression: Hx of coronary artery disease, Acute hypokalemia Chest pain Qualifiers: Chest pain type: unspecified Qualified Code(s): R07.9 - Chest pain, unspecified Patient Disposition: Home, Self-Care Condition: Stable Instructions: Chest Pain (ED), Potassium Content of Foods List (ED), Hypokalemia (ED) Additional Instructions: We are going to put you back on Imdur but you are only to take it once a day. This is a long-acting nitroglycerin type medicine that helps keep heart vessels open. I recommend that you follow-up with your primary care provider within the next week, potassium should be rechecked. For your ongoing chest complaints, do recommend that you go back to your sql ssrs developer. We are finding no evidence of any heart damage or elevated troponin, no heart attack. Activity Level: Activity as Tolerated Discharge Diet: Heart Healthy (2 gm sodium, low fat) Prescriptions: New isosorbide mononitrate 30 mg tablet extended release 24 hr 30 mg PO QAM Qty: 30 0RF No Action aspirin 81 mg tablet,delayed release (DR/EC) 81 mg PO DAILY multivitamin Tablet 1 tab PO QDAY calcium w/D PO BID Eliquis 2.5 mg tablet 2.5 mg PO BID Qty: 180 3RF omeprazole 20 mg capsule,delayed release(DR/EC) 20 mg PO QDAY PRN naratriptan 2.5 mg tablet 2.5 mg PO DAILY PRN (Reason: migraine headache) Qty: 9 0RF metoprolol tartrate 100 mg tablet 100 mg PO BID Qty: 180 2RF trazodone 150 mg tablet 150 mg PO QHS Qty: 90 2RF rosuvastatin 20 mg tablet 20 mg PO QDAY Qty: 90 2RF lisinopril 2.5 mg tablet 2.5 mg PO QDAY Qty: 90 2RF isosorbide dinitrate 30 mg tablet 30 mg PO TID Qty: 270 2RF Rx Instructions: allow nitrate-free interval of 12-14 hrs per 24-hr period clopidogrel 75 mg tablet 75 mg PO QDAY Qty: 90 2RF folic acid 1 mg tablet 1 mg PO QDAY Qty: 90 2RF magnesium oxide 400 mg (241.3 mg magnesium) tablet 400 mg PO QDAY Qty: 90 2RF nitroglycerin 0.4 mg tablet, sublingual 0.4 mg sublingual Q5M PRN (Reason: chest pain) Qty: 25 0RF Follow Up/Referrals: Tong Truong MD [Primary Care Provider] - Stand Alone Forms: [facility] Info Instructions
--- NOTE | 2023-11-17 15:02 | CRLHL7_ITS ---
For Patients: As a result of the Century Cures Act, medical imaging exams and procedure reports are released immediately into your electronic medical record. You may view this report before your referring provider. If you have questions, please contact your health care provider. INDICATION: Chest pain COMPARISON: None TECHNIQUE: Single view examination FINDINGS: TUBES AND LINES: None. HEART AND MEDIASTINUM: The heart size is normal. The mediastinal contour appears normal for patient age. LUNGS AND PLEURAL SPACES: The lungs appear normal.The pleural spaces are unremarkable. OSSEOUS STRUCTURES: Demineralized osseous structures, degenerative changes and scoliosis. IMPRESSION: No evidence of active pulmonary disease. Dictated by Ck Stinson MD @ 11/18/2023 7:12:01 AM (Electronically Signed)
--- OUTSIDE RECORDS SUMMARY | 2023-11-17 15:33 | XMS_ITS | Referral Summary ---
Author Organization [facility] Address [address] [place] [address] Care Team Providers Care Bill Distributor Name Role Phone Unavailable Primary Care Provider Unavailabl e Source Comments Patient records contain information from all sites at [facility]. For routine questions regarding patient records, call [phone] during business hours, M-F 8:00 AM - 5:00 PM Central Time. Record requests for emergency care only can be directed to [phone] at any time.[facility] Allergies Active Allergy Reactions Criticality Noted [...]
--- OUTSIDE RECORDS SUMMARY | 2023-11-17 15:33 | XMS_ITS | Clinical Summary ---
Author Organization [facility] Address [address] [place] [address] Care Team Providers Care Sign Manufacturer Name Role Phone Unavailable Primary Care Provider Unavailabl e Source Comments Patient records contain information from all sites at [facility]. For routine questions regarding patient records, call [phone] during business hours, M-F 8:00 AM - 5:00 PM Central Time. Record requests for emergency care only can be directed to [phone] at any time.[facility] Allergies Active Allergy Reactions Criticality Noted Date [...] 2023 01/04/2023, 02/12/2022, 01/19/2021, Additional history exists Influenza Vaccine (#1) 2023 , 02/12/2022, 01/06/2021, Additional history exists Creatinine Level (Kidney Fun ction Test) 11/12/2024 11/13/2023, 11/02/2023, 09/08/2023, Additional history exists Potassium Level 11/12/2024 11/13/2023, 10/07, 09/08/2023, Additional history exists Sodium Level 11/12/2024 11/13/2023, 10/07, 09/08/2023, Additional history exists DTaP,Tdap,and Td Vaccines (4 - Td or Tdap) 03/25/2031 03/25/2021, 01/22/2010, 01/22/2010 Pneumococcal vaccine (65+ years) Completed 12/21/2016, 11/21/2016, 12/31/2014, Additional history exists Zoster Vaccines Completed 05/30/2018, 11/06, 01/25/2012, Additional history exists
--- OUTSIDE RECORDS SUMMARY | 2023-11-17 15:33 | XMS_ITS | Clinical Summary ---
Author Organization [facility] Address [place], [place] [address] Care Team Providers Care Manager Oracle Name Role Phone Tong Truong MD Primary Care Provider [phone] Tong Truong MD Unavailable [phone] Allergies Active Allergy Reactions Criticality Noted [...] Active magnesium oxide (MAG-OX 400) 400 mg tabletIndications:Ga stroparesis Take 1 Tablet (400 mg) by mouth once daily. 0 10/18/2020 Active naratriptan (AMERGE) 2.5 mg tablet Take 2.5 mg by mouth 2 times daily if needed for Migraine. Give at minimum 4hrs apart. Max Dose: 5mg per 24hrs. Active multivitamin (MVI) tablet Take 1 Tablet by mouth once daily. Active aspirin chewable 81 mg chewable tabletIndications:NS SHANE (non-ST elevated myocardial infarction) (HC) Chew 1 Tablet (81 mg) by mouth every morning. 90 Tablet 3 03/07/2021 Active rosuvastatin (CRESTOR) 20 mg tabletIndications: HD (arteriosclerotic heart disease) Take 1 Tablet (20 mg) by mouth at bedtime. 30 Tablet 2 03/06/2021 Active apixaban (ELIQUIS) 2.5 mg tabletIndications:Ce rebral infarction, unspecified mechanism (HC) Take 1 Tablet (2.5 mg) by mouth two times daily. 60 Tablet 1 11/12/2022 Active isosorbide dinitrate (ISORDIL) 30 mg tabletIndications:Co ronary artery disease due to lipid rich plaque,HTN (hypertension) Take 1 Tablet (30 mg) by mouth three times daily. Hold for 3 days 0 11/16/2022 Active calcium carbonate-vitamin D3, 500 mg-400 units, (OSCAL 500 + D) tablet Take 1 Tablet by mouth at bedtime. Active metoprolol tartrate (LOPRESSOR) 100 mg tablet Take 100 mg by mouth two times daily. Active clopidogreL (PLAVIX) 75 mg tablet Take 75 mg by mouth once daily. Active folic acid 1 mg tablet Take 1 mg by mouth once daily. Active nitroglycerin (NITROSTAT) 0.[address] 0.4 mg under the tongue every 5 minutes if needed for Chest Pain. Up to 3 tablets in 15 minutes. Active lisinopriL (PRINIVIL; ZESTRIL) 2.5 mg tabletIndications:Co ronary artery disease due to lipid rich plaque,HTN (hypertension) Take 2 Tablets (5 mg) by mouth once daily. 11/16/2023 Active rizatriptan (MAXALT NYLON OPERATOR) 5 mg disintegrating tabletIndications:Mi graine without status migrainosus, not intractable, unspecified migraine type Place 1 Tablet (5 mg) on the tongue 2 times daily if needed for Migraine. Give at minimum 2hrs apart. Max Dose: 30mg per 24hrs. 10 Tablet 11/16/2023 Active lisinopriL (PRINIVIL; ZESTRIL) 2.5 mg tabletIndications:Co ronary artery disease due to lipid rich plaque,HTN (hypertension) Take 1 Tablet (2.5 mg) by mouth once daily. 0 11/16/2022 4 Discontinued Active Problems Problem Noted Date Diagnosed Date Chest pain 11/13/2023 Status post fall 05/18/2023 Alcohol intoxication 05/18/2023 [...] of one rib of left side 04/04/19 Postural dizziness with near syncope 04/04/2021 CAD (coronary artery disease) 04/04/2021 Overview (08/05/2022): 2020: DIAGNOSTIC SUMMARY ? ? The LAD [...] Encounters Date Type Department Care Team Description 11/13/2023 9:50 AM CDT - 11/16/2023 11:28 AM CDT Emergency [facility] [address] [place] [address] Ayan Wilhelm MD [facility] [place] [facility] Of Timothy Alcantara MD [place], MD Cricket Cowart Abdurahman Rone, DOMINIK Chest pain, unspecified type (Primary Dx); Hypotension, unspecified hypotension type; Coronary artery disease due to lipid rich plaque; HTN (hypertension); Migraine without status migrainosus, not intractable, unspecified migraine type Discharge Disposition: Home Self Care 11/13/2023 Travel 11/02/2023 11:01 AM CDT - 11/02/2023 2:44 PM CDT Emergency [facility] [address] [place] [address] Stephanie Argueta MD Atypical chest pain (Primary Dx); Nausea; Acute nonintractable headache, unspecified headache type Discharge Disposition: Home Self Care 11/02/2023 Travel 09/08/2023 2:28 PM CDT - 09/08/2023 4:43 PM CDT Emergency [facility] [address] [place] [address] Toshia Cosme NP Other migraine without status migrainosus, not intractable (Primary Dx) Discharge Disposition: Home Self Care 09/08/2023 Travel from Last 3 Months Immunizations Name Administration Dates Next Due Influenza Virus, Unspecified 11/15/2017 Influenza, High-dose Inactivated 12/05/2019,100 03/2018 Pneumococcal Poly,23-Valent (Pneumovax) 11/22/19 17 Pneumococcal [...] of Communication with Friends and Fami ly 4 11/15/2023 Financial Resource Strain Answer Date R ecorded Difficulty of Paying Living Expenses 3 05/18/2023 Difficulty of Paying Living Expenses Not on file 05/18/2023 Food Insecurity Answer Date Recorded Worried About Running Out of Food in the Last Ye ar 1 05/18/2023 Transportation Needs Answer Date Record ed Lack of Transportation (Medical) 2 11/15/2023 Housing Stability Answer Date Recorded Unable to Pay for Housing in the Last Year 1 05/18/2023 Sex and Gender Information Value Date Recorded Sex Assigned at Not on file Gender Identity Not on file Sexual Orientation Not on file Obstetrics History Last Filed Vital Signs Vital Sign Reading Time Taken Comments Blood Pressure 183/84 11/16/2023 8:45 AM CDT Pulse 57 11/16/2023 8:45 AM CDT Temperature 36.7 ??C (98 ??F) 11/16/2023 7:39 AM CDT Respiratory Rate 16 11/16/2023 7:39 AM CDT Oxygen Saturation 95% 11/16/2023 7:39 AM CDT Inhaled Oxygen Concentration - - Weight 45.9 kg (101 lb 3.2 oz) 11/13/2023 9:54 A M CDT Height 152.4 cm (5') 11/13/2023 9:54 AM CDT Body Mass Index 19.76 11/13/2023 9:54 AM CDT Plan of Treatment Health Maintenance Due Date Last Done Comments Tdap 1956 Hepatitis C screening for age 18-79 12/19/1963 RSV vaccine for adults or pr egnancy (1 - 1-dose 60+ series) 2005 DEXA/DXA scan for age 65+ 2010 Medicare Wellness for age 65+ 2010 Tetanus booster 01/23/2020 01/22/2010 BMI (ht and wt on same day) for age 18+ 11/29/2021 11/29/2020, 10/18/2020 Depression screening for age 12+ 03/14/2022 03/14/19, 03/11/2021 COVID-19 vaccine series ( season) 2023 01/04/2023, 02/12/2022, 01/19/2021 Influenza for age 65+ 11/07/2023 12/05/2019 , 12/06/2018, 11/15/2017 Pneumococcal series for age 65+ Completed 7, 12/31/2014 Zoster (shingles) series for age 50+ Completed 05/30/2018, 11/15/2017, 01/25/2012 Procedures Procedure Name Priority Date/Time Associated Diagnosis Comments SCAN-CARDIAC STRIP 11/16/2023 1: 25 AM CDT ECHO TTE COMPLETE WO CONTRAST STAT 11/15/2023 2:56 PM CDT SCAN-CARDIAC STRIP 11/15/2023 1: [address] HEAD BRAIN WO STAT 11/14/2023 12:1 3 PM CDT WHITE BLOOD COUNT Early AM 11/14/2023 5:1 9 AM CDT SCAN-CARDIAC STRIP 11/14/2023 1: 43 AM CDT SCAN-CARDIAC STRIP 11/13/2023 10 :46 PM CDT ETHANOL SERUM OR PLASMA Today 11/13/2023 3:46 PM CDT DRUG SCREEN RAPID URINE INHOUSE NORA 11/13/2023 1:28 PM CDT URINALYSIS MICROSCOPIC STAT 1:28 PM CDT UA W/ SEDIMENT EXAM REFLEXED PER CRITERIA STAT 11/13/2023 1:28 PM CDT TROPONIN T (HS) ONE TIME Timed 11/13/2023 12:19 PM CDT XR CHEST 1 VIEW PORTABLE STAT 11/13/2023 11:13 AM CDT EKG 12 LEAD UNIT PERFORMED STAT 11/13/2023 10:23 AM CDT TROPONIN T (HS) ACUTE W/2HR REFLEX NORA 11/13/2023 10:06 AM CDT CBC WITH AUTO DIFFERENTIAL STAT 11/13/2023 10:06 AM CDT PRO-BNP STAT 11/13/2023 10:06 AM CDT COMP METABOLIC PANEL STAT 11/13/2023 10:06 AM CDT PROTIME-INR STAT 11/13/2023 10:06 AM CDT CBC WITH AUTO DIFFERENTIAL STAT 11/13/2023 10:06 AM CDT EKG 12 LEAD STAT 11/13/2023 9:35 AM CDT TROPONIN T (HS) ONE TIME Timed 11/02/2023 [...] CDT from Last 3 Months Results * SCAN-CARDIAC STRIP (11/16/2023 1:25 AM CDT) Scanner OTHER * ECHO TTE COMPLETE WO CONTRAST (11/15/2023 2:56 PM CDT) AORTIC VALVE MEAN PG 6 mmHg EJECTION FRACTION 72 % LVEDD 3.9 cm EJECTION FRACTION 70 - 75% Anatomical Region Laterality Modality Ultrasound 11/15/2023 2:00 PM CDT Narrative 11/15/2023 3:00 PM CDT ECHOCARDIOGRAM ADELA BOYD ?Accession#: ?? [id number] : ?1945 77 years Study Date: ?? 11/15/2023 2:00:41 PM Gender: F ? BP: ? 181/81 mmHg Height: 152.00 cm ? BSA: ?1.40 m? ? ? Weight: 46.00 kg ?Tech: ? CJG ?Referring MD: TIMOTHY ALCANTARA Site: ? [facility] Reading Location: [facility] Patient Location: Inpatient. Procedure: 2D, Color Doppler and Spectral Doppler. Indication for study: Chest Pain Cardiac Rhythm: Normal sinus.Study quality: Fair. Final Impressions: 1. Normal LV size, normal wall thickness, normal global systolic function with an estimated EF of 70 - 75%. 2. Right ventricular cavity size is normal, global systolic RV function is normal. 3. No significant valve disease detected. Comparison Compared to prior exam of 11/10/2022, there has been no significant change. Chamber Sizes and Function Normal left ventricular size, normal wall thickness, normal global systolic function with an estimated EF of 70 - 75%. Left atrial size is normal. Left atrial pressure is normal. Right ventricular cavity size is normal, global systolic RV function is normal. RV wall thickness is normal. The right atrium is normal. Right atrial volume index is 11 ml/m? ? ?. The pulmonary artery is of normal size and origin. The sinus of Valsalva is normal sized. The ascending aorta is not well visualized. Valves, RV Pressures and Diastolic Function The aortic valve is not well visualized , no stenosis and no regurgitation. The mitral valve is normal in structure, trace mitral regurgitation. Indeterminate pattern of LV diastolic filling. The tricuspid valve is normal in structure. Tricuspid regurgitation is trace regurgitation. Unable to assess right ventricular systolic pressure. The pulmonic valve is normal. Mild pulmonary regurgitation. Masses, Effusion, Shunts There is no pericardial effusion. The inferior vena cava is normal sized, respiratory size variation greater than 50%. No left to right shunting was detected by limited color flow Doppler interrogation of the interatrial septum. MEASUREMENTS AND CALCULATIONS 2-D Measurements and LV Function: LVID (d) 3.9 cm LV FS% (2D) ?? 44 % LVID (s) 2.2 cm LVOT diameter 1.8 cm IVS (d) ??0.8 cm HR ?61 bpm LVPW (d) 1.0 cm LA Vol index ??33 ml/m2 Ao Sinus 2.5 cm RA Vol index ??11 ml/m2 Diastology: Mitral ?Tissue Doppler E Peak 0.9 m/s ??e', Septum ? 0.07 m/s A Peak 0.7 m/s ??e', Lateral ?0.09 m/s E/A ?1.2 ?E/e' Average ?? 11.49 DT ? 218 msec Aortic Valve: Vmax ? 1.8 m/s ??BEE (V) ?? 1.62 cm? ? ? VTI ?0.35 m ?? BEE (I) ?? 1.65 cm? ? ? LVOT V max 1.1 m/s ??Max PG ?13 mmHg LVOT VTI ?? 0.23 m ?? Mean PG ?? 6 mmHg SV ? 58 ml ?Dim Index 0.65 SV index ?? 41 ml/m? ? ? CO ?3.5 l/min ?CI ?2.5 l/min/m? ? ? Mitral Valve: MVA ?3.5 cm? ? ? MV P 1/2 63 msec Tricuspid Valve and estimated PA pressures: TAPSE 2.5 cm Pulmonic Valve: PV Vmax 0.9 m/s PV AT ?? 98 msec . This study was interpreted by an [facility] accredited facility. ??Final ?? Procedure Note Wang Gasca MD - 11/15/2023 ECHOCARDIOGRAM ADELA BOYD : 1945 77 years Study Date: 11/15/2023 2:00:41 PM Gender: F BP: 181/81 mmHg Height: 152.00 cm BSA: 1.40 m? ? ? Weight: 46.00 kg Tech: CJG Referring MD: TIMOTHY ALCANTARA Site: [facility] Reading Location: [facility] Patient Location: Inpatient. Procedure: 2D, Color Doppler and Spectral Doppler. Indication for study: Chest Pain Cardiac Rhythm: Normal sinus.Study quality: Fair. Final Impressions: 1. Normal LV size, normal wall thickness, normal global systolic functionwith an estimated EF of 70 - 75%. 2. Right ventricular cavity size is normal, global systolic RV functionis normal. 3. No significant valve disease detected. Comparison Compared to prior exam of 11/10/2022, there has been no significantchange. Chamber Sizes and Function Normal left ventricular size, normal wall thickness, normal globalsystolic function with an estimated EF of 70 - 75%. Left atrial size isnormal. Left atrial pressure is normal. Right ventricular cavity size isnormal, global systolic RV function is normal. RV wall thickness isnormal. The right atrium is normal. Right atrial volume index is 11ml/m? ? ?. The pulmonary artery is of normal size and origin. The sinus ofValsalva is normal sized. The ascending aorta is not well visualized. Valves, RV Pressures and Diastolic Function The aortic valve is not well visualized , no stenosis and noregurgitation. The mitral valve is normal in structure, trace mitralregurgitation. Indeterminate pattern of LV diastolic filling. Thetricuspid valve is normal in structure. Tricuspid regurgitation is traceregurgitation. Unable to assess right ventricular systolic pressure. Thepulmonic valve is normal. Mild pulmonary regurgitation. Masses, Effusion, Shunts There is no pericardial effusion. The inferior vena cava is normal sized,respiratory size variation greater than 50%. No left to right shunting wasdetected by limited color flow Doppler interrogation of the interatrialseptum. MEASUREMENTS AND CALCULATIONS 2-D Measurements and LV Function: LVID (d) 3.9 cm LV FS% (2D) 44 % LVID (s) 2.2 cm LVOT diameter 1.8 cm IVS (d) 0.8 cm HR 61 bpm LVPW (d) 1.0 cm LA Vol index 33 ml/m2 Ao Sinus 2.5 cm RA Vol index 11 ml/m2 Diastology: Mitral Tissue Doppler E Peak 0.9 m/s e', Septum 0.07 m/s A Peak 0.7 m/s e', Lateral 0.09 m/s E/A 1.2 E/e' Average 11.49 DT 218 msec Aortic Valve: Vmax 1.8 m/s BEE (V) 1.62 cm? ? ? VTI 0.35 m BEE (I) 1.65 cm? ? ? LVOT V max 1.1 m/s Max PG 13 mmHg LVOT VTI 0.23 m Mean PG 6 mmHg SV 58 ml Dim Index 0.65 SV index 41 ml/m? ? ? CO 3.5 l/min CI 2.5 l/min/m? ? ? Mitral Valve: MVA 3.5 cm? ? ? MV P 1/2 63 msec Tricuspid Valve and estimated PA pressures: TAPSE 2.5 cm Pulmonic Valve: PV Vmax 0.9 m/s PV AT 98 msec . This study was interpreted by an [facility] accredited facility. Final Timothy Alcantara MD ECHO ORD * SCAN-CARDIAC STRIP (11/15/2023 1:12 AM CDT) Scanner OTHER * CT head without contrast (11/14/2023 12:13 PM CDT) Only the most recent of2 resultswithin the time period is included. Anatomical Region Laterality Modality HEAD, BRAIN Computed Tomogra phy 11/14/2023 12:2 5 PM CDT Impressions 11/14/2023 12:25 PM CDT 1. ??No acute intracranial disease. 2. ??Areas of white matter low attenuation which are nonspecific but likely reflect sequelae of chronic small-vessel ischemic changes. Please note that all CT scans at this facility use dose modulation, iterative reconstruction, and/or weight-based dosing when appropriate to reduce radiation dose to as low as reasonably achievable. Dictated by Yash Thomason MD @ 11/14/2023 12:25:06 PM (Electronically Signed) Narrative 11/14/2023 12:25 PM CDT For Patients: ??As a result of the Century Cures Act, medical imaging exams and procedure reports are released immediately into your electronic medical record. ??You may view this report before your referring provider. ??If you have questions, please contact your health care provider. INDICATION: Headache. TECHNIQUE: Non contrast head CT. COMPARISON: 09/08/2023. FINDINGS: There is no acute intracranial hemorrhage or acute ischemic infarct. Areas of white matter low attenuation are nonspecific but likely reflect sequelae of chronic small vessel ischemic changes. There is no mass effect or midline shift. No hydrocephalus. No extra-axial collection or hematoma. No acute loss of gaytan-white differentiation. Mastoid air cells are clear. Paranasal sinuses are clear. No acute skull fracture. Procedure Note Yash Thomason MD - 11/14/2023 For Patients: As a result of the Cures Act, medical imagingexams and procedure reports are released immediately into your electronicmedical record. You may view this report before your referring provider.If you have questions, please contact your health care provider. INDICATION: Headache. TECHNIQUE: Non contrast head CT. COMPARISON: 09/08/2023. FINDINGS: There is no acute intracranial hemorrhage or acute ischemic infarct. Areasof white matter low attenuation are nonspecific but likely reflectsequelae of chronic small vessel ischemic changes. There is no mass effector midline shift. No hydrocephalus. No extra-axial collection or hematoma.No acute loss of gaytan-white differentiation. Mastoid air cells are clear.Paranasal sinuses are clear. No acute skull fracture. IMPRESSION: 1. No acute intracranial disease. 2. Areas of white matter low attenuation which are nonspecific but likelyreflect sequelae of chronic small-vessel ischemic changes. Please note that all CT scans at this facility use dose modulation,iterative reconstruction, and/or weight-based dosing when appropriate toreduce radiation dose to as low as reasonably achievable. Dictated by Yash Thomason MD @ 11/14/2023 12:25:06 PM (Electronically Signed) Timothy Alcantara MD CT * WHITE BLOOD COUNT (11/14/2023 5:19 AM CDT) [facility] WHITE BLOOD COUNT 11.0 4.5 - 11.0 thou/cu mm 11/14/2023 5:37 AM CDT [facility] NRBC 0.0 % 11/14/2023 5:37 AM CDT [facility] ABS NRBC 0.0 thou /cu mm 11/14/2023 5:37 AM CDT [facility] Blood BLOOD SPECIMEN / Unknown Venipuncture / Unknown 11/14/2023 5:19 AM CDT 11/14/2023 5:31 AM CDT Timothy Alcantara MD HEMATOLOGY Performing Organization Address [facility] Co de Phone Number [facility] [address] [place] [address], * SCAN-CARDIAC STRIP (11/14/2023 1:43 AM CDT) Scanner OTHER * SCAN-CARDIAC STRIP (11/13/2023 10:46 PM CDT) Scanner OTHER * Ethanol, serum TODAY (11/13/2023 3:46 PM CDT) Only the most recent of3 resultswithin the time period is included. Pathologist [facility] ETHANOL <0.010 <0.010 g/dL 11/13/2023 4:24 PM CDT [facility] Blood BLOOD SPECIMEN / Unknown Butterfly / Unknown 11/13/2023 3:46 PM CDT 11/13/2023 4:00 PM CDT Timothy Alcantara MD CHEMISTRY Performing Organization Address [facility] Co de Phone Number [facility] [address] [place] [address], * (ABNORMAL) Drug screen, rapid urine inhouse TODAY (11/13/2023 1:28 PM CDT) THC METABOLITES,HAYDEN L Non-negative , consider further testing if indicated(A) Not Detected 11/13/2023 3:49 PM CDT [facility] PCP,QUAL Not Detected Not Detected 11/13/2023 3:49 PM CDT [facility] COCAINE,QUAL Not Detected Not Detected 11/13/2023 3:49 PM CDT [facility] METHAMPHETAMINE , QUALITATIVE Not Detected Not Detected 11/13/2023 3:49 PM CDT [facility] OPIATES,QUAL Not Detected Not Detected 11/13/2023 3:49 PM CDT [facility] AMPHETAMINE, QUALITATIVE Not Detected Not Detected 11/13/2023 3:49 PM CDT [facility] BENZODIAZEPINES ,QUAL Not Detected Not Detected 11/13/2023 3:49 PM CDT [facility] TRICYCLICS,QUAL Not Detected Not Detected 11/13/2023 3:49 PM CDT [facility] METHADONE, QUALITATIVE Not Detected Not Detected 11/13/2023 3:49 PM CDT [facility] BARBITURATES,QU AL Not Detected Not Detected 11/13/2023 3:49 PM CDT [facility] OXYCODONE, QUALITATIVE Not Detected Not Detected 11/13/2023 3:49 PM CDT [facility] BUPRENORPHINE, QUALITATIVE Not Detected Not Detected 11/13/2023 3:49 PM CDT [facility] Urine URINE SPECIMEN / Unknown Non-Blood / Unknown 11/13/2023 1:28 PM CDT 11/13/2023 1:[address] [facility] - 11/13/2023 3:49 PM CDT Please Note: ?? This is a screening test only, all results are unconfirmed and should be used for medical purposes only. ??Unconfirmed results must not be used for non-medical purposes (e.g., employment testing, legal testing). ??Suggest analyte specific confirmation for all non-negative results. ??Specimens will be held for 24 hours if additional testing is needed. ?? The following threshold concentrations are used for this analysis: ? Drug ? Screening Threshold ? Buprenorphine ? 10 ng/mL PCP ? 25 ng/mL ?? THC Metabolites ? 50 ng/mL *Opiates ? 100 ng/mL Oxycodone ?100 ng/mL Cocaine ?150 ng/mL Benzodiazepines ?150 ng/mL ?? Methadone ?200 ng/mL ?? Barbiturates ? 200 ng/mL Tricyclic Antidepressants ?300 ng/mL ?? Amphetamines ? 500 ng/mL ?? Methamphetamines ? 500 ng/mL ?*Includes related compounds: ? Codeine ?50 ng/mL ? Heroin ?100 ng/mL ? Morphine ?100 ng/mL ? Hydrocodone ? 400 ng/mL ? Hydromorphone ? 800 ng/mL ?Venlafaxine (Effexor) is a known cross reactant in the PCP ?assay. ??If clinically indicated, order PCP confirmation. Timothy Alcantara MD URINE Performing Organization Address [facility] Co de Phone Number [facility] [address] [address], [place] * (ABNORMAL) URINALYSIS MICROSCOPIC (11/13/2023 1:28 PM CDT) RBC 6-10(A) 0-2, None Seen /HPF 11/13/2023 1:53 PM CDT [facility] WBC 0-2 0-2, 3-5, None Seen /HPF 11/13/2023 1:53 PM CDT [facility] BACTERIA Many(A) None Seen, Rare, Few Bacteria/ HPF 11/13/2023 1:53 PM CDT [facility] EPITHELIAL CELLS None Seen None Seen, Few Epi/HPF 11/13/2023 1:53 PM CDT [facility] HYALINE CASTS 0-2 0-2, 3-5 /LPF 11/13/2023 1:53 PM CDT [facility] Urine URINE SPECIMEN / Unknown Non-Blood / Unknown 11/13/2023 1:28 PM CDT 11/13/2023 1:34 PM CDT Ayan Wilhelm MD URINE Performing Organization Address [facility] Co de Phone Number [facility] [address] [address], [place] * (ABNORMAL) Urinalysis w Reflex Microscopic if Positive (11/13/2023 1:28 PM CDT) COLOR Yellow Yellow Color 11/13/2023 1:53 PM CDT [facility] CLARITY Clear Clear Clarity 11/13/2023 1:53 PM CDT [facility] SPECIFIC GRAVITY,URINE 1.010 1.010, 1.015, 1.020, 1.025 11/13/2023 1:53 PM CDT [facility] PH,URINE 7.0 6.0, 7.0, 8.0, 5.5, 6.5, 7.5, 8.5 11/13/2023 1:53 PM CDT [facility] UROBILINOGEN, QUALITATIVE Normal Normal EU/dl 11/13/2023 1:53 PM CDT [facility] PROTEIN, URINE Negative Negative mg/dL 11/13/2023 1:53 PM CDT [facility] GLUCOSE, URINE Negative Negative mg/dL 11/13/2023 1:53 PM CDT [facility] KETONES,URINE 15(A) Negative mg/dL 11/13/2023 1:53 PM CDT [facility] BILIRUBIN,URI NE Negative Negative 11/13/2023 1:53 PM CDT [facility] OCCULT BLOOD,URINE Negative Negative 11/13/2023 1:53 PM CDT [facility] NITRITE Negative Negative 11/13/2023 1:53 PM CDT [facility] LEUKOCYTE ESTERASE Trace(A) Negative 11/13/2023 1:53 PM CDT [facility] Urine URINE SPECIMEN / Unknown Non-Blood / Unknown 11/13/2023 1:28 PM CDT 11/13/2023 1:34 PM CDT Ayan Wilhelm MD [facility]INE [facility] [address] [place] [address], * TROPONIN T (HS) ONE TIME (11/13/2023 12:19 PM CDT) Only the most recent of2 resultswithin the time period is included. TROPONIN T HS 9 6-10 ng/L ng/L 11/13/2023 1:16 PM CDT [facility] Blood BLOOD SPECIMEN / Unknown Butterfly / Unknown 11/13/2023 12:19 PM CDT 11/13/2023 12:28 PM CDT Ayan Wilhelm MD CHEMISTRY [facility] [address] [place] [address], [place] * XR CHEST 1 VIEW PORTABLE (11/13/2023 11:13 AM CDT) Anatomical Region Laterality Modality HEART, THORAX, CHEST Digital Rad iography 11/13/2023 11:2 1 AM CDT Impressions 11/13/2023 11:21 AM CDT No evidence of acute cardiopulmonary disease. Dictated by Wang Mcadams MD @ 11/13/2023 11:21:06 AM (Electronically Signed) Narrative 11/13/2023 11:21 AM CDT For Patients: ??As a result of the Cures Act, medical imaging exams and procedure reports are released immediately into your electronic medical record. ??You may view this report before your referring provider. ??If you have questions, please contact your health care provider. INDICATION: Chest pain. TECHNIQUE: Chest 1 portable view. COMPARISON: 05/22/2023. FINDINGS: No pneumothorax or pleural effusion. Lungs are clear. Cardiac and mediastinal contours are within normal limits. Upper abdomen and osseous structures as imaged show no acute abnormality. Procedure Note Wang Mcadams, DO - 11/13/2023 For Patients: As a result of the s Act, medical imagingexams and procedure reports are released immediately into your electronicmedical record. You may view this report before your referring provider.If you have questions, please contact your health care provider. INDICATION: Chest pain. TECHNIQUE: Chest 1 portable view. COMPARISON: 05/22/2023. FINDINGS: No pneumothorax or pleural effusion. Lungs are clear. Cardiac andmediastinal contours are within normal limits. Upper abdomen and osseousstructures as imaged show no acute abnormality. IMPRESSION: No evidence of acute cardiopulmonary disease. Dictated by Wang Mcadams MD @ 11/13/2023 11:21:06 AM (Electronically Signed) Ayan Wilhelm MD GENERAL IMAGING * EKG 12 Lead - 30 Minutes After Initial EKG (11/13/2023 10:23 AM CDT) Interpretation Junctional rhythm Abnormal ECG BEYOND NOW Ventricular Rate 58 BPM BEYOND NOW Atrial Rate BPM BEYOND NOW P-R Interval ms BEYOND NOW QRS Duration 70 ms BEYOND NOW QT 480 ms BEYOND NOW QTc 471 ms BEYOND NOW P Melcher [place] degrees BEYOND NOW R [place]cher [place] 51 degrees BEYOND NOW T Melcher [place] 49 degrees BEYOND NOW 11/13/2023 10:2 3 AM CDT 11/13/2023 10:04 PM CDT Ayan Wilhelm MD EKG ORD BEYOND NOW [place], [place] * (ABNORMAL) TROPONIN T (HS) ACUTE W/2HR REFLEX (11/13/2023 10:06 AM CDT) Only the most recent of2 resultswithin the time period is included. Pathologist [facility] TROPONIN T HS 12(H) 6-10 ng/L ng/L 11/13/2023 10:56 AM CDT [facility] Blood BLOOD SPECIMEN / Unknown Butterfly / Unknown 11/13/2023 10:06 AM CDT 11/13/2023 10:17 AM CDT Narrative [facility] - 11/13/2023 10:56 AM CDT hs-cTnT (Elecsys Troponin T Gen [...] low risk in emergency department patient population. Ayan Wilhelm MD CHEMISTRY [facility] [address] [place] [phone], * (ABNORMAL) CBC WITH AUTO DIFFERENTIAL (11/13/2023 10:06 AM CDT) Only the most recent of3 resultswithin the time period is included. WHITE BLOOD COUNT 16.2(H) 4.5 - 11.0 thou/cu mm 11/13/2023 10:26 AM CDT [facility] RED BLOOD COUNT 4.32 4.00 - 5.20 mil/cu mm 11/13/2023 10:26 AM CDT [facility] HEMOGLOBIN 13.7 12.0 - 16.0 g/dL 11/13/2023 10:26 AM CDT [facility] HEMATOCRIT 41.0 33.0 - 51.0 % 11/13/2023 10:26 AM CDT [facility] MCV 95 80 - 100 fL 11/13/2023 10:26 AM CDT [facility] MCH 31.7 26.0 - 34.0 pg 11/13/2023 10:26 AM [facility] MCHC 33.4 32.0 - 36.0 g/dL 11/13/2023 10:26 AM [facility] RDW 13.1 11.5 - 15.5 % 11/13/2023 10:26 AM [facility] PLATELET COUNT 242 140 - 440 thou/cu mm 11/13/2023 10:26 AM [facility] MPV 9.7 6.5 - 11.0 fL 11/13/2023 10:26 AM [facility] NRBC 0.0 % 11/13/2023 10:26 AM [facility] ABS NRBC 0.0 thou /cu mm 11/13/2023 10:26 AM [facility] % NEUT 80.0 % 11/13/2023 10:26 AM [facility] % LYMPH 11.7 % 11/13/2023 10:26 AM [facility] % MONO 6.2 % 11/13/2023 10:26 AM [facility] % EOS 0.6 % 11/13/2023 10:26 AM [facility] % BASO 0.8 % 11/13/2023 10:26 AM [facility] % IMMATURE GRAN (METAS,MYELOS,LA OS) 0.7 % 11/13/2023 10:26 AM [facility] ABSOLUTE NEUTROPHILS 13.0(H) 1.7 - 7.0 thou/cu mm 11/13/2023 10:26 AM [facility] ABSOLUTE LYMPHOCYTES 1.9 0.9 - 2.9 thou/cu mm 11/13/2023 10:26 AM [facility] ABSOLUTE MONOCYTES 1.0(H) <0.9 thou/cu mm 11/13/2023 10:26 AM [facility] ABSOLUTE EOSINOPHILS 0.1 <0.5 thou/cu mm 11/13/2023 10:26 AM CDT [facility] ABSOLUTE BASOPHILS 0.1 <0.3 thou/cu mm 11/13/2023 10:26 AM CDT [facility] ABSOLUTE IMMATURE GRANULOCYTES(MET ,MYELOS,PROS) 0.1 <0.3 thou/cu mm 11/13/2023 10:26 AM CDT [facility] Blood BLOOD SPECIMEN / Unknown Butterfly / Unknown 11/13/2023 10:06 AM CDT 11/13/2023 10:17 AM CDT Ayan Wilhelm MD HEMATOLOGY Performing Organization Address City/State/[facility] Co de Phone Number [facility] [address] [place] [phone], * Protime - INR (11/13/2023 10:06 AM CDT) Only the most recent of2 resultswithin the time period is included. INR 1.0 <1.3 11/13/2023 10:30 AM CDT [facility] PROTIME 11.6 10.3 - 12.3 sec 11/13/2023 10:30 AM CDT [facility] Blood BLOOD SPECIMEN / Unknown Butterfly / Unknown 11/13/2023 10:06 AM CDT 11/13/2023 10:17 AM CDT Narrative [facility] - 11/13/2023 10:30 AM CDT ?Therapeutic Range 2.0-3.0 for most anticoagulated [...] seconds if the patient is on UFH. Ayan Wilhelm MD HEMATOLOGY Performing Organization Address City/State/[facility] de Phone Number [facility] [address] [place] [phone], [place] * (ABNORMAL) PRO-BNP (11/13/2023 10:06 AM CDT) PRO-BNP 1,150(H) <450 pg/mL 11/13/2023 10:56 AM CDT [facility] Blood BLOOD SPECIMEN / Unknown Butterfly / Unknown 11/13/2023 10:06 AM CDT 11/13/2023 10:17 AM CDT Narrative [facility] - 11/13/2023 10:56 AM CDT The following cut-points have been suggested for the use of proBNP for the diagnostic evaluation of heart failure (HF) in patient with acute dyspnea. Patients with eGFR >= 60 Diagnosis (rule in CHF) ? <50 Years Old ?450 pg/mL 50 - 75 Years Old ?900 pg/mL >75 Years Old ? 1800 pg/mL Exclusion (rule out CHF) Age Independent ?300 pg/mL A cutoff of 1200 pg/mL for patients with an eGFR <60 yields a diagnostic sensitivity of 89% and specificity of 72% for acute congestive heart failure. ? Ayan Wilhelm MD SEND OUTS Performing Organization Address [facility] Co de Phone Number [facility] [employer] [facility] [address] [place] [address], [place] * (ABNORMAL) Comp Metabolic Panel (11/13/2023 10:06 AM CDT) [facility] SODIUM 140 136 - 145 mmol/L 11/13/2023 10:56 AM T [facility] POTASSIUM 4.3 3.5 - 5.1 mmol/L 11/13/2023 10:56 AM T [facility] CHLORIDE 104 98 - 107 mmol/L 11/13/2023 10:56 AM T [facility] CO2,TOTAL 25 22 - 29 mmol/L 11/13/2023 10:56 AM T [facility] ANION GAP 11 5 - 18 11/13/2023 10:56 AM [facility] GLUCOSE 129(H) 70 - 99 mg/dL 11/13/2023 10:56 AM [facility] CALCIUM 8.5(L) 8.8 - 10.2 mg/dL 11/13/2023 10:56 AM [facility] BUN 7(L) 8 - 23 mg/dL 11/13/2023 10:56 AM [facility] CREATININE 0.78 0.50 - 0.90 mg/dL 11/13/2023 10:56 AM [facility] BUN/CREAT RATIO 9(L) 10 - 20 10:56 AM [facility] eGFR 78(L) >90 mL/min/1.7 3m2 11/13/2023 10:56 AM [facility] Comment:As of 2021, eG FR is calculated by the CKD-EPI creatinine equation without race adjustment. ??eGFR can be influenced by muscle mass, exercise, and diet. ??The reported eGFR is an estimation only and is only applicable if the renal function is stable. ALBUMIN 4.2 4.0 - 4.9 g/dL 11/13/2023 10:56 AM [facility] PROTEIN,TOTAL 6.7 6.0 - 8.0 g/dL 11/13/2023 10:56 AM CDT [facility] BILIRUBIN,TOTAL 0.4 0.0 - 1.2 mg/dL 11/13/2023 10:56 AM CDT [facility] ALK PHOSPHATASE 77 35 - 104 IU/L 11/13/2023 10:56 AM CDT [facility] ALT (SGPT) 24 10 - 35 IU/L 11/13/2023 10:56 AM CDT [facility] AST (SGOT) 33 10 - 35 IU/L 11/13/2023 10:56 AM CDT [facility] Blood BLOOD SPECIMEN / Unknown Butterfly / Unknown 11/13/2023 10:06 AM CDT 11/13/2023 10:17 AM CDT Ayan Wilhelm MD [facility] [address] [place] [address], * EKG 12 LEAD (11/13/2023 9:35 AM CDT) Only the most recent of2 resultswithin the time period is included. Pathologist [facility] Interpretation sinus bradycardia no STEMI Abnormal ECG BEYOND NOW Ventricular Rate 58 BPM BEYOND NOW Atrial Rate BPM BEYOND NOW P-R Interval ms BEYOND NOW QRS Duration 74 ms BEYOND NOW QT 464 ms BEYOND NOW QTc 455 ms BEYOND NOW P [place]cher [place] degrees BEYOND NOW R [place] 58 degrees BEYOND NOW T [place] 43 degrees BEYOND NOW 11/13/2023 9:35 AM CDT 11/13/2023 12:10 PM CDT Anw Ed Triage EKG ORD BEYOND NOW [place], [place] * (ABNORMAL) BASIC METABOLIC PANEL (11/02/2023 11:16 AM CDT) Only the most recent of2 resultswithin the time period is included. SODIUM 142 136 - 145 mmol/L 11/02/2023 11:41 AM CDT [facility] POTASSIUM 3.7 3.5 - 5.1 mmol/L 11/02/2023 11:41 AM [facility] CHLORIDE 107 98 - 107 mmol/L 11/02/2023 11:41 AM [facility] CO2,TOTAL 24 22 - 29 mmol/L 11/02/2023 11:41 AM [facility] ANION GAP 11 5 - 18 11/02/2023 11:41 AM [facility] GLUCOSE 138(H) 70 - 99 mg/dL 11/02/2023 11:41 AM [facility] CALCIUM 9.4 8.8 - 10.2 mg/dL 11/02/2023 11:41 AM [facility] BUN 8 8 - 23 mg/dL 11/02/2023 11:41 AM [facility] CREATININE 0.79 0.50 - 0.90 mg/dL 11/02/2023 11:41 AM [facility] BUN/CREAT RATIO 10 10 - 20 11:41 AM [facility] eGFR 77(L) >90 mL/min/1.7 3m2 11/02/2023 11:41 AM [facility] Comment:As of 2021, eG FR is calculated by the CKD-EPI creatinine equation without race adjustment. ??eGFR can be influenced by muscle mass, exercise, and diet. ??The reported eGFR is an estimation only and is only applicable if the renal function is stable. Blood BLOOD SPECIMEN / Unknown Venipuncture / Unknown 11/02/2023 11:16 AM CDT 11/02/2023 11:20 AM T Stephanie Argueta MD CHEMISTRY [facility] [address] [place] [address] * SEDIMENTATION RATE (09/08/2023 2:45 PM T) SEDIMENTATION RATE 9 <30 mm/hr 2023 3:24 PM [facility] Blood BLOOD SPECIMEN / Unknown Venipuncture / Unknown 09/08/2023 2:45 PM CDT 09/08/2023 2:51 PM CDT Toshia Cosme NP HEMATOLOGY Performing Organization Address [facility]/ZIP Co de Phone Number [facility] [address] [place] [address] * C-REACTIVE PROTEIN (09/08/2023 2:45 PM CDT) C-REACTIVE PROTEIN <0.3 <0.5 mg/dL 09/08/2023 3:21 PM CDT [facility] Blood BLOOD SPECIMEN / Unknown Venipuncture / Unknown 09/08/2023 2:45 PM CDT 09/08/2023 2:51 PM CDT Toshia Cosme NP CHEMISTRY Performing Organization Address [facility]/ZIP Co de Phone Number [facility] [address] [place] [address] * LIPASE (09/08/2023 2:45 PM CDT) LIPASE 54.7 13.0 - 60.0 IU/L 09/08/2023 3:15 PM CDT [facility] Blood BLOOD SPECIMEN / Unknown Venipuncture / Unknown 09/08/2023 2:45 PM CDT 09/08/2023 2:51 PM CDT Toshia Cosme NP CHEMISTRY Performing Organization Address City/[facility]/ZIP Co de Phone Number [facility] [address] [place] [address] * (ABNORMAL) HEPATIC FUNCTION PANEL (09/08/2023 2:45 PM CDT) ALBUMIN 4.6 4.0 - 4.9 g/dL 09/08/2023 3:15 PM CDT [facility] PROTEIN,TOTAL 7.2 6.0 - 8.0 g/dL 09/08/2023 3:15 PM CDT [facility] BILIRUBIN,TOTAL 0.3 0.0 - 1.2 mg/dL 09/08/2023 3:15 PM CDT [facility] BILIRUBIN,DIRECT <0.2 0.0 - 0.3 mg/dL 09/08/2023 3:15 PM CDT [facility] BILIRUBIN,INDIRE CT 09/08/2023 3:15 PM CDT [facility] Comment:Unable to calculate, Direct Bili <0.2 ALK PHOSPHATASE 78 35 - 104 IU/L 09/08/2023 3:15 PM CDT [facility] ALT (SGPT) 6(L) 10 - 35 IU/L 09/08/2023 3:15 PM CDT [facility] AST (SGOT) 21 10 - 35 IU/L 09/08/2023 3:15 PM CDT [facility] Blood BLOOD SPECIMEN / Unknown Venipuncture / Unknown 09/08/2023 2:45 PM CDT 09/08/2023 2:51 PM CDT Toshia Cosme [employer] CHEMISTRY Performing Organization Address City/State/[facility] Co de Phone Number [facility] [address] [place] [address] from Last 3 Months Advance Directives Documents on File Type Date Recorded 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
--- OUTSIDE RECORDS SUMMARY | 2023-11-17 15:33 | XMS_ITS ---
Author Organization [facility] Address [address] [place] [address] Care Team Providers Care Plant Sprayer Name Role Phone Unavailable Unavailable Unavailable Surgery Details Not on file Complications Check Surgery Details section. Procedure Estimated Blood Loss Check Surgery Details section. Procedure Findings Check Surgery Details section. Procedure Specimens Taken Check Surgery Details section.
[2023-11-17 15:45] LABS: Lactate* 1.4 mmol/L (0.5-1.9)
[2023-11-17 15:47] LABS: Basophils Percent Auto 0.6 % (0.0-3.0); Eosinophils Percent Auto 1.2 % (0.0-7.0); Hematocrit 44.4 % (33.0-51.0); Hemoglobin* 14.8 gm/dL (12.0-16.0); Immature Granulocytes Pct Auto 0.1 %; Lymphocytes Percent Auto 20.3 % (20-44); Mean Corpuscular HGB Conc 33 gm/dL (32-36); Mean Corpuscular Hemoglobin 31 pg (26-34); Mean Corpuscular Volume 94 fL (80-100); Monocytes Percent Auto 7.7 % (0.0-11.0); Neutrophils Percent Auto 70.1 % (42.0-72.0); Platelet Count* 242 K/uL (140-440); Red Blood Count 4.72 m/uL (4.00-5.20); White Blood Count* 11.38 K/uL (4.50-11.00)
[2023-11-17 15:49] LABS: Slide Review Reflex No
[2023-11-17] MEDS: ACETAMINOPHEN 500 MG TABLET 1000 MG PO (16:00)
[2023-11-17 16:07] LABS: Albumin* 4.7 g/dL (3.3-5.0); Chloride* 104 mmol/L (96-114)
[2023-11-17 16:08] LABS: Potassium* 3.2 mmol/L (3.6-5.1); Sodium* 140 mmol/L (135-149)
[2023-11-17 16:10] LABS: Bilirubin Total* 0.7 mg/dL (0.1-1.5); Creatinine* 0.7 mg/dL (0.5-1.5); Est. Creatinine Clearance* 32.72; Estimated Glomerular Filt Rate 89 ml/min
[2023-11-17 16:11] LABS: Alanine Aminotransferase* 21 U/L (4-35); Alkaline Phosphatase* 59 U/L (40-150); Anion Gap 8 mEq/L (7-15); Aspartate Amino Transferase* 30 U/L (12-35); Blood Urea Nitrogen* 11 mg/dL (7-30); Calcium* 9.6 mg/dL (8.4-10.6); Carbon Dioxide* 28 mmol/L (20-32); Glucose* 106 mg/dL (60-115); INR 0.91 (0.91-1.10); Partial Thromboplastin Time* 27 Seconds (23-33); Prothrombin Time 12.8 Seconds; Total Protein* 7.3 g/dL (6.0-8.3)
[2023-11-17 16:14] LABS: D Dimer Quantitative* 0.58 ug/ml (0.00-0.50)
[2023-11-17 16:16] LABS: C Reactive Protein* < 0.5 mg/dL (0.5-1.0); Ethanol* < 0.01 % (0.01-0.03)
[2023-11-17 16:23] LABS: NT Pro B Type NatriureticPept* 974 pg/mL; Troponin I* 0.01 ng/mL (0.01-0.04)
[2023-11-17 16:41] LABS: Erythrocyte SedimentationRate* 5 mm/hr (2-20)
[2023-11-17 17:17] LABS: Troponin, Point-of-Care* 0.01 ng/ml (0.01-0.04)
--- NOTE | 2023-11-25 13:19 | PC.SOCIAL ---
Addendum entered by HOMA Sabillon 12/08/23 13:21: Social work consult: hot mill worker spoke to the pt this afternoon on the phone. She shared that she did not need any resources for alcohol use/dependence at this time. Pt is aware of how to contact the Social Work Department if she would like resources in the future. Social work to follow-up as needed. Addendum entered by HOMA Sabillon 12/07/23 16:29: Social work consult: hot mill worker attempted to call pt again this afternoon as a follow-up to our phone conversation the other day, but she did not answer and her voicemail box is not set-up for leaving messages, so this worker will try calling her again later this week. Social work to follow-up as needed. Original Note: Social work consult: Received a referral for the pt for a social work case manager consult in regard to alcohol use/dependence. hot mill worker connected with the pt today via phone and she said that she has not been drinking and she was going to follow-up with her PCP about the referral that was sent to social work because she has thought her PCP was putting in a referral to a outreach counselor. Pt stated that this worker could follow back up with her early next week. Social work to follow-up as needed.
== END 2023-11-17 18:23 | disposition home or self-care (01) ==
PROVIDERS: Emergency Provider Family Medicine; PCP Family Medicine
DX: R07.9 Chest pain, unspecified (principal); E87.6 Hypokalemia
CPT/HCPCS: 36415; 71045; 80053; 82077; 83605; 83880; 84484; 85025; 85379; 85610; 85651; 85730; 86140; 93005; 94761; 99284; A9270